=== PATIENT | female | born 1940 | race Caucasian/White ===

== ENCOUNTER → 2017-01-18 | Outpatient (CLI) | payer MEDICARE ==
[2017-01-18 08:36] LABS: Basophils % (A) 1 %; CH 28.4; CHCM 32.4; Eosinophils # (A) 0.2 k/uL (0-0.7); Eosinophils % (A) 3 %; HCT 38.6 % (34.0-46.0); HDW 2.45; HGB 12.3 gm/dL (11.4-16.0); Luc # (Auto) 0.19; Luc % (Auto) 3; Lymphocytes # (A) 1.8 k/uL (1.0-4.8); Lymphocytes % (A) 31 %; MCH 28.2 pg (25.0-35.0); MCV 88.1 fL (80.0-100.0); Mean Platelet Volume 6.5; Monocytes # (A) 0.5 k/uL (0-1.0); Monocytes % (A) 8 %; Neutrophils # (A) 3.2 k/uL (1.3-7.7); Neutrophils % (A) 54 %; RBC 4.38 m/uL (3.80-5.40); RDW 12.6 % (11.5-15.5); WBC 5.9 k/uL (3.8-10.6); WBC (Perox) 6.36
[2017-01-18 09:16] LABS: Hemoglobin A1C 6.7 % (4.2-6.1)
[2017-01-18 11:05] LABS: ALT 38 U/L (9-52); AST 27 U/L (14-36); Alkaline Phosphatase 74 U/L (38-126); Anion Gap 11 mmol/L; Blood Urea Nitrogen 29 mg/dL (7-17); Calcium 10.9 mg/dL (8.4-10.2); Carbon Dioxide 26 mmol/L (22-30); Chloride 106 mmol/L (98-107); Cholesterol 152 mg/dL (<200); Glucose 138 mg/dL (74-99); HDL Cholesterol 65 mg/dL (40-60); Non-African American GFR(MDRD) >60 (>60 ml/min/1.73 sqM); Potassium 4.1 mmol/L (3.5-5.1); Sodium 143 mmol/L (137-145); Total Bilirubin 0.6 mg/dL (0.2-1.3); Total Protein 7.4 g/dL (6.3-8.2); Triglycerides 125 mg/dL (<150)
== END | disposition home or self-care (01) ==
LOC: LABWHC1 08:07
PROVIDERS: ATTEND Family Medicine
DX: E11.9 Type 2 diabetes mellitus without complications (principal); E55.9 Vitamin D deficiency, unspecified; E03.9 Hypothyroidism, unspecified; E78.5 Hyperlipidemia, unspecified
CPT/HCPCS: 36415; 80053; 80061; 82306; 83036; 84439; 84443; 84481; 85025

== ENCOUNTER → 2017-01-28 | Outpatient (CLI) | payer MEDICARE ==
--- NOTE | 2017-01-28 13:28 | US ---
EXAMINATION TYPE: US thyroid st tissue head/neck DATE OF EXAM: 01/28/2017 12:36 PM COMPARISON: No previous CLINICAL HISTORY: Hypercalcemia E83.52 Hyperthyroidism E05.90. dizziness GLAND SIZE: Right Lobe: 5.6 x 1.7 x 1.5 cm Overall Parenchyma: heterogenous Left Lobe: 4.1 x 1.3 x 1.4 cm Overall Parenchyma: heterogeneous Isthmus Thickness: 0.3 cm NODULES RIGHT: # of nodules measured on right: 1 1. 0.4 X 0.3 x 0.3 cm hypoechoic cystic nodule at the upper pole with well-defined margins. This no dule is wider than tall and shows no intranodular vascularity. Prior size: no previous LEFT: # of nodules measured on left: 0 ISTHMUS: # of nodules measured in the isthmus: 0 TECHNOLOGIST IMPRESSION: heterogeneous thyroid with slightly enlarged right lobe with multiple small cystic nodules, bilateral neck scanned, no abnormal lymphadenopathy noted. IMPRESSION: 1. RIGHT-SIDED THYROMEGALY. 2. MULTIPLE, TINY, RIGHT-SIDED HYPOECHOIC/CYSTIC LESIONS.
--- NOTE | 2017-01-28 13:30 | US ---
EXAMINATION TYPE: US carotid duplex BILAT DATE OF EXAM: 01/28/2017 12:46 PM COMPARISON: no previous CLINICAL HISTORY: Hypercalcemia E83.52 Hyperthyroidism E05.90. Dizziness EXAM MEASUREMENTS: RIGHT: Peak Systolic Velocity (PSV) cm/sec ----- Right CCA: 101.1 ----- Right ICA: 116.4 ----- Right ECA: 133.7 ICA/CCA ratio: 1.2 RIGHT: End Diastole cm/sec ----- Right CCA: 31.4 ----- Right ICA: 42.7 ----- Right ECA: 22.5 LEFT: Peak Systolic Velocity (PSV) cm/sec ----- Left CCA: 94.7 ----- Left ICA: 141.8 ----- Left ECA: 90.4 ICA/CCA ratio: 1.5 LEFT: End Diastole cm/sec ----- Left CCA: 23.6 ----- Left ICA: 53.4 ----- Left ECA: 13.9 VERTEBRALS (direction of flow): Right Vertebral: Antegrade Left Vertebral: Antegrade TECHNOLOGIST IMPRESSION: Bilateral intimal thickening, minimal plaque bilateral bulb, elevated veloc ities: right mid ECA and left proximal ICA. IMPRESSION: 1. 50-69% BY DIAMETER STENOSIS OF THE PROXIMAL LEFT ICA. 2. ELEVATED ECA FLOW ON THE RIGHT. Criteria for Assigning % of Stenosis / Diameter reduction (Estimation based on the indirect measurements of the internal carotid artery velocities (ICA PSV). 1. Normal (no stenosis)=ICA PSV < 125 cm/s: ratio < 2.0: ICA EDV<40 cm/s. 2. Less than 50% stenosis=ICA PSV < 125 cm/s: ratio < 2.0: ICA EDV<40 cm/s. 3. 50 to 69% stenosis=ICA PSV of 125 to 230 cm/s: ration 2.0 ? 4.0: ICA EDV 40-100 cm/s. 4. Greater than 70% stenosis to near occlusion= ICA PSV > 230 cm/s: ratio > 4.0: ICA EDV > 100 cm/s. 5. Near occlusion= ICA PSV velocities may be low or undetectable: variable ratio and ICA EDV. 6. Total occlusion=unable to detect flow.
== END | disposition home or self-care (01) ==
LOC: RADUSWWP 12:11
PROVIDERS: ATTEND Family Medicine
DX: I65.22 Occlusion and stenosis of left carotid artery (principal); E04.2 Nontoxic multinodular goiter; E05.90 Thyrotoxicosis, unspecified without thyrotoxic crisis or storm
CPT/HCPCS: 76536; 80053; 82330; 83970; 84432; 85025; 93880

== ENCOUNTER → 2017-02-26 | Outpatient (CLI) | payer MEDICARE ==
--- NOTE | 2017-02-26 21:39 | MR ---
MRA neck with and without contrast HISTORY: Dizziness, carotid stenosis Correlation to carotid Doppler duplex 28 January 2017 [id number] imaging obtained through the neck, multiplanar multisequence and postcontrast imaging following 20 cc MultiHance IV through the neck, three-dimensional post processing performed on the [place] [employer] workstation Common carotid arteries, innominate artery, left and right subclavian artery, vertebral arteries are patent. No significant stenosis of the proximal internal carotid arteries bilaterally. Left vertebral artery is dominant. Internal and external carotid arteries are patent. IMPRESSION: Normal carotid MRA
== END | disposition home or self-care (01) ==
LOC: RADMRIMAIN 10:55
PROVIDERS: ATTEND Family Medicine
DX: I65.29 Occlusion and stenosis of unspecified carotid artery (principal)
CPT/HCPCS: 70549; A9577

== ENCOUNTER → 2017-03-10 | Outpatient (CLI) | payer MEDICARE ==
--- NOTE | 2017-03-10 16:30 | NM ---
EXAMINATION TYPE: NM parathyroid w/spect DATE OF EXAM: 03/10/2017 3:27 PM COMPARISON: NONE HISTORY: TECHNIQUE: Following administration of 27.1 mCi Tc99m Sestamibi. Anterior projection images of the neck and ches t were obtained 10 minutes and 3 hours post injection. SPECT images of the neck and chest were obtai nikita and reconstructed in three axes. FINDINGS: Thyroid tracer washout: Delayed images demonstrate near-complete tracer washout from the thyroid. Parathyroid uptake: Delayed images demonstrate a focal area of increased uptake overlying the expecte d region of the thyroid bed which may represent a parathyroid adenoma. Normal uptake: There is physio logical tracer uptake in the myocardium, liver, salivary glands, and thyroid gland. IMPRESSION: Findings are suspicious for a parathyroid adenoma overlying the left thyroid bed.
== END | disposition home or self-care (01) ==
LOC: RADBDWWP 10:26
PROVIDERS: ATTEND Internal Medicine Endocrinology, Diabetes & Metabolism
DX: E21.0 Primary hyperparathyroidism (principal)
CPT/HCPCS: 78071; A9500

== ENCOUNTER → 2017-03-17 | Outpatient (CLI) | payer MEDICARE ==
[2017-03-17 08:14] LABS: ALT 26 U/L (9-52); AST 23 U/L (14-36); Alkaline Phosphatase 71 U/L (38-126); Anion Gap 8 mmol/L; Blood Urea Nitrogen 27 mg/dL (7-17); Calcium 10.8 mg/dL (8.4-10.2); Carbon Dioxide 28 mmol/L (22-30); Chloride 105 mmol/L (98-107); Glucose 140 mg/dL (74-99); Non-African American GFR(MDRD) >60 (>60 ml/min/1.73 sqM); Potassium 4.4 mmol/L (3.5-5.1); Sodium 141 mmol/L (137-145); Total Bilirubin 0.6 mg/dL (0.2-1.3); Total Protein 7.7 g/dL (6.3-8.2)
== END | disposition home or self-care (01) ==
LOC: LABWHC1 07:07
PROVIDERS: ATTEND Internal Medicine Endocrinology, Diabetes & Metabolism
DX: E21.0 Primary hyperparathyroidism (principal)
CPT/HCPCS: 36415; 80053; 82306; 83970; 84439; 84443

== ENCOUNTER → 2017-04-04 | Outpatient (CLI) | payer MEDICARE ==
--- NOTE | 2017-04-05 11:17 | NM ---
EXAMINATION TYPE: NM thyroid image w uptake DATE OF EXAM: 04/05/2017 11:08 AM COMPARISON: 01/28/2017 HISTORY: Hyperthyroidism TECHNIQUE: After the intravenous administration of 11.0 mCi Tc 99m Sodium Pertechnetate, thyroid imag ing is performed 10 minutes post injection. Thyroid iodine uptake is calculated after the oral admini stration of 20.0 uCi I-131 capsule. FINDINGS: There is a area of increased intensity within the mid aspect of the right lobe thyroid.. T he 4 hour iodine uptake is calculated at 21.6% (normal range 8-14%). The 24-hour iodine uptake is aurora culated at 69% (normal range 15-35%). IMPRESSION: 1. Hyperthyroidism due to increased intensity uptake mid right thyroid. Could represent a hot nodule. Although, ultrasound 01/28/2017 demonstrated no definite corresponding nodule.
== END | disposition home or self-care (01) ==
LOC: RADNMMAIN 10:32
PROVIDERS: ATTEND Internal Medicine Endocrinology, Diabetes & Metabolism
DX: E05.90 Thyrotoxicosis, unspecified without thyrotoxic crisis or storm (principal)
CPT/HCPCS: 78014; A9528; A9512

== ENCOUNTER → 2017-05-05 | Outpatient (CLI) | payer MEDICARE ==
[2017-05-05 11:31] LABS: ALT 42 U/L (9-52); AST 26 U/L (14-36); Alkaline Phosphatase 91 U/L (38-126); Anion Gap 11 mmol/L; Blood Urea Nitrogen 24 mg/dL (7-17); Calcium 10.7 mg/dL (8.4-10.2); Carbon Dioxide 27 mmol/L (22-30); Chloride 105 mmol/L (98-107); Glucose 125 mg/dL (74-99); Non-African American GFR(MDRD) >60 (>60 ml/min/1.73 sqM); Sodium 143 mmol/L (137-145); Total Bilirubin 0.6 mg/dL (0.2-1.3); Total Protein 7.5 g/dL (6.3-8.2)
== END ==
LOC: LABWHC1 10:54
PROVIDERS: ATTEND Internal Medicine Endocrinology, Diabetes & Metabolism
DX: E05.90 Thyrotoxicosis, unspecified without thyrotoxic crisis or storm (principal); E21.0 Primary hyperparathyroidism
CPT/HCPCS: 36415; 80053; 83970; 84439; 84443; 84480

== ENCOUNTER → 2017-06-09 | Outpatient (CLI) | payer MEDICARE ==
[2017-06-09 11:28] LABS: ALT 36 U/L (9-52); AST 23 U/L (14-36); Alkaline Phosphatase 91 U/L (38-126); Anion Gap 8 mmol/L; Blood Urea Nitrogen 27 mg/dL (7-17); Calcium 9.8 mg/dL (8.4-10.2); Carbon Dioxide 26 mmol/L (22-30); Chloride 105 mmol/L (98-107); Glucose 112 mg/dL (74-99); Non-African American GFR(MDRD) >60 (>60 ml/min/1.73 sqM); Potassium 4.6 mmol/L (3.5-5.1); Sodium 139 mmol/L (137-145); Total Bilirubin 0.4 mg/dL (0.2-1.3); Total Protein 6.9 g/dL (6.3-8.2)
== END | disposition home or self-care (01) ==
LOC: LABWHC1 10:18
PROVIDERS: ATTEND Internal Medicine Endocrinology, Diabetes & Metabolism
DX: E21.0 Primary hyperparathyroidism (principal); E04.1 Nontoxic single thyroid nodule
CPT/HCPCS: 36415; 80053; 82306; 83970; 84439; 84443; 84480

== ENCOUNTER → 2017-08-17 | Outpatient (CLI) | payer MEDICARE ==
[2017-08-17 08:52] LABS: ALT 38 U/L (9-52); AST 28 U/L (14-36); Alkaline Phosphatase 97 U/L (38-126); Anion Gap 8 mmol/L; Blood Urea Nitrogen 21 mg/dL (7-17); Calcium 9.8 mg/dL (8.4-10.2); Carbon Dioxide 28 mmol/L (22-30); Chloride 104 mmol/L (98-107); Glucose 113 mg/dL (74-99); Non-African American GFR(MDRD) 53 (>60 ml/min/1.73 sqM); Potassium 4.9 mmol/L (3.5-5.1); Sodium 140 mmol/L (137-145); Total Bilirubin 0.3 mg/dL (0.2-1.3); Total Protein 7.3 g/dL (6.3-8.2)
== END | disposition home or self-care (01) ==
LOC: LABWHC1 07:34
PROVIDERS: ATTEND Internal Medicine Endocrinology, Diabetes & Metabolism
DX: E04.1 Nontoxic single thyroid nodule (principal); E21.0 Primary hyperparathyroidism
CPT/HCPCS: 36415; 80053; 83970; 84439; 84443; 84480

== ENCOUNTER → 2017-12-22 | Outpatient (CLI) | payer MEDICARE ==
[2017-12-22 09:42] LABS: Albumin 4.1 g/dL (3.5-5.0); Calcium 10.2 mg/dL (8.4-10.2); Potassium 4.4 mmol/L (3.5-5.1); Total Bilirubin 0.4 mg/dL (0.2-1.3); Total Protein 7.4 g/dL (6.3-8.2)
[2017-12-22 09:52] LABS: T4, Free (Free Thyroxine) 0.63 ng/dL (0.78-2.19)
== END | disposition home or self-care (01) ==
LOC: LABWHC1 08:28
PROVIDERS: ATTEND Internal Medicine Endocrinology, Diabetes & Metabolism
DX: E83.52 Hypercalcemia (principal); E05.90 Thyrotoxicosis, unspecified without thyrotoxic crisis or storm
CPT/HCPCS: 36415; 80053; 82306; 83970; 84439; 84443

== ENCOUNTER → 2018-01-12 | Outpatient (CLI) | payer MEDICARE ==
--- NOTE | 2018-01-12 10:09 | US ---
EXAMINATION TYPE: US duplex aorta DATE OF EXAM: 01/12/2018 COMPARISON: NONE CLINICAL HISTORY: Z13.9 Screening for Disorder; family history of AAA; controlled HTN per patient EXAM MEASUREMENTS: Abdominal Aorta: Proximal: 2.1cm A/P by 1.8 cm transversely Mid: 1.8cm A/P by 1.7 cm transversely Distal: 2.5cm A/P Sagittal by 1.8 cm transversely Bifurcation: 1.2cm A/P right FER and 1.1cm A/P left FER Ectatic appearance is noted to lower aorta with intimal wall calcifications, Color flow patency and PW Doppler are imaged in distal aorta. IMPRESSION: Atherosclerotic and ectatic aorta especially distally without greater than 3 cm aneurysma l change identified.
== END | disposition home or self-care (01) ==
LOC: RADUSWWP 08:40
PROVIDERS: ATTEND Family Medicine
DX: I70.0 Atherosclerosis of aorta (principal); I77.819 Aortic ectasia, unspecified site; Z88.8 Allergy status to other drugs, medicaments and biological substances; Z91.040 Latex allergy status
CPT/HCPCS: 93979

== ENCOUNTER → 2018-03-30 | Outpatient (CLI) | payer MEDICARE ==
[2018-03-30 08:25] LABS: Albumin 3.8 g/dL (3.5-5.0); Calcium 10.3 mg/dL (8.4-10.2); Potassium 4.9 mmol/L (3.5-5.1); Total Bilirubin 0.5 mg/dL (0.2-1.3); Total Protein 6.9 g/dL (6.3-8.2)
[2018-03-30 08:40] LABS: T4, Free (Free Thyroxine) 1.07 ng/dL (0.78-2.19)
[2018-03-30 11:35] LABS: Parathyroid Hormone Intact 74.6 pg/mL (14.0-72.0); Vitamin D 25 Hydroxy 45.5 ng/mL (30.0-100.0)
== END | disposition home or self-care (01) ==
LOC: LABWHC1 07:13
PROVIDERS: ATTEND Internal Medicine Endocrinology, Diabetes & Metabolism
DX: E05.90 Thyrotoxicosis, unspecified without thyrotoxic crisis or storm (principal); E83.52 Hypercalcemia
CPT/HCPCS: 36415; 80053; 82306; 83970; 84439; 84443; 84480

== ENCOUNTER → 2018-07-05 | Outpatient (CLI) | payer MEDICARE ==
[2018-07-05 09:19] LABS: ALT 28 U/L (9-52); AST 22 U/L (14-36); Albumin 3.8 g/dL (3.5-5.0); Alkaline Phosphatase 57 U/L (38-126); Anion Gap 6 mmol/L; Calcium 10.2 mg/dL (8.4-10.2); Carbon Dioxide 28 mmol/L (22-30); Chloride 107 mmol/L (98-107); Glucose 124 mg/dL (74-99); Potassium 4.3 mmol/L (3.5-5.1); Sodium 141 mmol/L (137-145); Total Bilirubin 0.5 mg/dL (0.2-1.3)
[2018-07-05 09:33] LABS: Blood Urea Nitrogen 28 mg/dL (7-17)
== END | disposition home or self-care (01) ==
LOC: LABWHC1 07:35
PROVIDERS: ATTEND Internal Medicine Endocrinology, Diabetes & Metabolism
DX: E05.90 Thyrotoxicosis, unspecified without thyrotoxic crisis or storm (principal); E83.52 Hypercalcemia
CPT/HCPCS: 36415; 80053; 84439; 84443; 84480

== ENCOUNTER → 2018-11-13 | Outpatient (CLI) | payer MEDICARE | LOC: LABWHC1 10:04 | PROVIDERS: ATTEND Internal Medicine Endocrinology, Diabetes & Metabolism | DX: E05.20 Thyrotoxicosis with toxic multinodular goiter without thyrotoxic crisis or storm (principal) | CPT/HCPCS: 36415; 84439; 84443 ==

== ENCOUNTER → 2019-02-19 | Outpatient (CLI) | payer MEDICARE ==
--- NOTE | 2019-02-19 14:10 | BD ---
EXAMINATION TYPE: Axial Bone Density DATE OF EXAM: 02/19/2019 COMPARISON:2016 CLINICAL HISTORY: disorder of bone Height: 5'5 / Weight: 169 FRAX RISK QUESTIONS: History of Fracture in Adulthood: y Secondary Osteoporosis: RISK FACTORS HISTORY OF: Postmenopausal woman: y MEDICATIONS: Thyroid Medications: Which medication: tapazol How Lon years Additional Medications: pain, statin Zestoretic Additional History: EXAM MEASUREMENTS: Bone mineral densitometry was performed using the [facility]. Bone mineral density as measured about the Lumbar spine is: ----- L1-L4(G/cm2): 1.193 T Score Values are as follows: ----- L2: -0.3 ----- L3:1.3 ----- L4: 0.8 ----- L1-L4: 0.1 Bone mineral density has: Decreased -0.5since study of: 08/16/2016 Bone mineral density about the R hip (g/cm2): 0.871 Bone mineral density about the L hip (g/cm2): 0.851 T Score values are as follows: -----R Neck: -1.2 -----L Neck: -1.3 -----R Total: -0.8 -----L Total: -0.9 Bone mineral density has: Decreased -2.8since study of: 08/16/2016 IMPRESSION: Osteopenia (T Score between -2.5 and -1). There is slightly increased risk of fracture and the patient may be considered for treatment. Re-Screen 2-5 years. NOTE: T-SCORE=SD OF THE YOUNG ADULT MEAN.
--- NOTE | 2019-02-20 09:08 | MM ---
Reason for exam: screening (asymptomatic). Last mammogram was performed 1 year and 2 months ago. History: Patient is postmenopausal. Physical Findings: A clinical breast exam by your physician is recommended on an annual basis and results should be correlated with mammographic findings. MG Screening Mammo w CAD Bilateral CC and MLO view(s) were taken. Prior study comparison: December 15, 2017, bilateral MG screening mammo w CAD. August 16, 2016, bilateral MG screening mammo w CAD. The breast tissue is heterogeneously dense. This may lower the sensitivity of mammography. There is chronic nodularity bilaterally. There is no dominant lesion. No significant changes when compared with prior studies. ASSESSMENT: Benign, BI-RAD 2 RECOMMENDATION: Routine screening mammogram of both breasts in 1 year.
== END | disposition home or self-care (01) ==
LOC: RADMAMWWP 13:25
PROVIDERS: ATTEND Family Medicine
DX: Z12.31 Encounter for screening mammogram for malignant neoplasm of breast (principal); M85.851 Other specified disorders of bone density and structure, right thigh; M85.852 Other specified disorders of bone density and structure, left thigh; Z78.0 Asymptomatic menopausal state
CPT/HCPCS: 77067; 77080

== ENCOUNTER → 2019-03-29 | Outpatient (CLI) | payer MEDICARE ==
[2019-03-29 23:23] LABS: Albumin 4.1 g/dL (3.80-4.90); Albumin/Globulin Ratio 1.71 (1.60-3.17); Anion Gap 7.5 mmol/L (4.00-12.00); Calcium 9.8 mg/dL (8.7-10.3); Carbon Dioxide 26.5 mmol/L (21.6-31.8); Globulin 2.4 g/dL (1.6-3.3); Potassium 4.2 mmol/L (3.5-5.5); Total Bilirubin 0.3 mg/dL (0.3-1.2); Total Protein 6.5 g/dL (6.2-8.2)
[2019-03-29 23:30] LABS: T4, Free (Free Thyroxine) 1.5 ng/dL (0.80-1.80)
== END | disposition home or self-care (01) ==
LOC: LABWHC1 14:45
PROVIDERS: ATTEND Internal Medicine Endocrinology, Diabetes & Metabolism
DX: E05.20 Thyrotoxicosis with toxic multinodular goiter without thyrotoxic crisis or storm (principal)
CPT/HCPCS: 36415; 80053; 84439; 84443; 84480

== ENCOUNTER → 2019-06-05 | Outpatient (CLI) | payer MEDICARE ==
[2019-06-05 19:01] LABS: African American GFR (CKD) 61.6 (60.0-200.0); Albumin 4.1 g/dL (3.80-4.90); Albumin/Globulin Ratio 1.58 (1.60-3.17); Anion Gap 7.1 mmol/L (4.00-12.00); Calcium 8.9 mg/dL (8.7-10.3); Carbon Dioxide 28.9 mmol/L (21.6-31.8); Globulin 2.6 g/dL (1.6-3.3); Potassium 4.3 mmol/L (3.5-5.5); Total Bilirubin 0.2 mg/dL (0.3-1.2); Total Protein 6.7 g/dL (6.2-8.2)
[2019-06-05 19:08] LABS: T4, Free (Free Thyroxine) 1.4 ng/dL (0.80-1.80)
== END | disposition home or self-care (01) ==
LOC: LABWHC1 15:09
PROVIDERS: ATTEND Internal Medicine Endocrinology, Diabetes & Metabolism
DX: E05.20 Thyrotoxicosis with toxic multinodular goiter without thyrotoxic crisis or storm (principal); E04.1 Nontoxic single thyroid nodule
CPT/HCPCS: 36415; 80053; 84439; 84443; 84480

== ENCOUNTER → 2019-08-28 | Outpatient (CLI) | payer MEDICARE ==
[2019-08-28 08:09] LABS: Basophils # (A) 0.1 k/uL (0-0.2); Basophils % (A) 1 %; Eosinophils # (A) 0.2 k/uL (0-0.7); Eosinophils % (A) 3 %; HCT 40.9 % (34.0-46.0); Lymphocytes # (A) 1.8 k/uL (1.0-4.8); Lymphocytes % (A) 27 %; MCH 29.4 pg (25.0-35.0); MCHC 31.9 g/dL (31.0-37.0); MCV 92.4 fL (80.0-100.0); Mean Platelet Volume 6.4; Monocytes # (A) 0.5 k/uL (0-1.0); Monocytes % (A) 8 %; Neutrophils # (A) 3.9 k/uL (1.3-7.7); Neutrophils % (A) 59 %; Platelet Count 218 k/uL (150-450); RBC 4.43 m/uL (3.80-5.40); RDW 12.3 % (11.5-15.5); WBC 6.7 k/uL (3.8-10.6)
[2019-08-28 12:01] LABS: African American GFR (CKD) 54.5 (60.0-200.0); Albumin 4.3 g/dL (3.80-4.90); Albumin/Globulin Ratio 1.72 (1.60-3.17); Anion Gap 6.4 mmol/L (4.00-12.00); BUN/Creat Ratio 27.27 Ratio (12.00-20.00); Calcium 10.4 mg/dL (8.7-10.3); Carbon Dioxide 26.6 mmol/L (21.6-31.8); Chol/HDL Ratio 2.68; Globulin 2.5 g/dL (1.6-3.3); LDL Cholesterol,Calculated 86.4 mg/dL (0.0-131.0); Potassium 4.6 mmol/L (3.5-5.5); Total Bilirubin 0.5 mg/dL (0.3-1.2); Total Protein 6.8 g/dL (6.2-8.2); VLDL Calculation 19.6 mg/dL (5.00-40.00)
[2019-08-28 14:51] LABS: Hemoglobin A1C 7.2 % (4.0-6.0)
== END | disposition home or self-care (01) ==
LOC: LABWHC1 07:48
PROVIDERS: ATTEND Physician Assistant
DX: E11.9 Type 2 diabetes mellitus without complications (principal)
CPT/HCPCS: 36415; 80053; 80061; 83036; 85025

== ENCOUNTER → 2019-12-05 | Outpatient (CLI) | payer MEDICARE | END | disposition home or self-care (01) | LOC: LABWHC1 10:04 | PROVIDERS: ATTEND Internal Medicine Endocrinology, Diabetes & Metabolism | DX: E05.20 Thyrotoxicosis with toxic multinodular goiter without thyrotoxic crisis or storm (principal) | CPT/HCPCS: 36415; 84439; 84443; 84480 ==

== ENCOUNTER → 2020-06-17 | Outpatient (CLI) | payer MEDICARE ==
[2020-06-17 11:41] LABS: T4, Free (Free Thyroxine) 0.76 ng/dL (0.78-2.19)
== END | disposition home or self-care (01) ==
LOC: LAB 09:58
PROVIDERS: ATTEND Internal Medicine Endocrinology, Diabetes & Metabolism
DX: E04.1 Nontoxic single thyroid nodule (principal)
CPT/HCPCS: 84439; 84443; 84480

== ENCOUNTER → 2020-06-17 | Outpatient (CLI) | payer MEDICARE ==
--- NOTE | 2020-06-23 11:01 | MM ---
Reason for exam: screening (asymptomatic). Last mammogram was performed 1 year and 4 months ago. History: Patient is postmenopausal. Physical Findings: A clinical breast exam by your physician is recommended on an annual basis and results should be correlated with mammographic findings. MG 3D Screening Mammo W/Cad Bilateral CC and MLO view(s) were taken. Prior study comparison: February 19, 2019, bilateral MG screening mammo w CAD. December 15, 2017, bilateral MG screening mammo w CAD. The breast tissue is heterogeneously dense. This may lower the sensitivity of mammography. No significant changes when compared with prior studies. ASSESSMENT: Benign, BI-RAD 2 RECOMMENDATION: Routine screening mammogram of both breasts in 1 year.
== END | disposition home or self-care (01) ==
LOC: RADMAMWWP 09:32
PROVIDERS: ATTEND Family Medicine
DX: Z12.31 Encounter for screening mammogram for malignant neoplasm of breast (principal)
CPT/HCPCS: 77063; 77067

== ENCOUNTER → 2020-12-24 | Outpatient (CLI) | payer MEDICARE ==
[2020-12-24 11:07] LABS: Basophils # (A) 0.05 X 10*3/uL (0.00-0.10); Basophils % (A) 0.7 %; Eosinophils # (A) 0.22 X 10*3/uL (0.04-0.35); Eosinophils % (A) 3.1 %; HGB 12.8 g/dL (12.0-15.0); Lymphocytes # (A) 2.12 X 10*3/uL (0.90-5.00); Lymphocytes % (A) 29.9 %; MCH 29.9 pg (27.0-32.0); MCV 93.5 fL (80.0-97.0); Mean Platelet Volume 10.1 fL (9.5-12.2); Monocytes # (A) 0.58 X 10*3/uL (0.20-1.00); Monocytes % (A) 8.2 %; Neutrophils % (A) 57.8 %; Platelet Count 236 X 10*3/uL (140-440); RBC 4.28 X 10*6/uL (4.10-5.20); WBC 7.09 X 10*3/uL (4.50-10.00)
[2020-12-24 12:37] LABS: African American GFR (CKD) 60.8 (60.0-200.0); Albumin 4.5 g/dL (3.80-4.90); Albumin/Globulin Ratio 1.8 (1.60-3.17); Calcium 10.1 mg/dL (8.7-10.3); Chol/HDL Ratio 2.51; Globulin 2.5 g/dL (1.6-3.3); LDL Cholesterol,Calculated 86.2 mg/dL (0.0-131.0); Non-African American GFR(CKD) 52.4 (60.0-200.0); Potassium 4.3 mmol/L (3.5-5.5); Total Bilirubin 0.4 mg/dL (0.2-1.2); VLDL Calculation 16.8 mg/dL (5.00-40.00)
[2020-12-24 12:45] LABS: T4, Free (Free Thyroxine) 0.9 ng/dL (0.80-1.80)
[2020-12-24 17:07] LABS: Hemoglobin A1C 7.8 % (4.0-6.0)
== END | disposition home or self-care (01) ==
LOC: LABWHC1 07:12
PROVIDERS: ATTEND Internal Medicine Endocrinology, Diabetes & Metabolism
DX: E05.00 Thyrotoxicosis with diffuse goiter without thyrotoxic crisis or storm (principal); E11.42 Type 2 diabetes mellitus with diabetic polyneuropathy; E78.5 Hyperlipidemia, unspecified; E55.9 Vitamin D deficiency, unspecified; E03.9 Hypothyroidism, unspecified
CPT/HCPCS: 36415; 80053; 80061; 82306; 83036; 84439; 84443; 84479; 84481; 85025

== ENCOUNTER → 2021-08-20 | Outpatient (CLI) | payer MEDICARE ==
[2021-08-21 05:39] LABS: ALT 15 U/L (8-44); AST 15 U/L (13-35); African American GFR (CKD) 60.8 (60.0-200.0); Albumin 4.1 g/dL (3.8-4.9); Albumin/Globulin Ratio 1.52 (1.60-3.17); Alkaline Phosphatase 52 U/L (41-126); BUN/Creat Ratio 21.33 Ratio (12.00-20.00); Blood Urea Nitrogen 21.2 mg/dL (9.0-27.0); Calcium 10.1 mg/dL (8.7-10.3); Carbon Dioxide 23.3 mmol/L (21.6-31.8); Chloride 101 mmol/L (96-109); Globulin 2.7 g/dL (1.6-3.3); Glucose 117 mg/dL (70-110); Non-African American GFR(CKD) 52.4 (60.0-200.0); Potassium 4.2 mmol/L (3.5-5.5); Sodium 138 mmol/L (135-145); Total Bilirubin <0.20 mg/dL (0.30-1.20); Total Protein 6.8 g/dL (6.2-8.2)
== END | disposition home or self-care (01) ==
LOC: LABWHC1 15:18
PROVIDERS: ATTEND Internal Medicine Endocrinology, Diabetes & Metabolism
DX: E05.20 Thyrotoxicosis with toxic multinodular goiter without thyrotoxic crisis or storm (principal)
CPT/HCPCS: 36415; 80053; 84439; 84443; 84480

== ENCOUNTER → 2021-09-01 | Outpatient (CLI) | payer MEDICARE ==
--- NOTE | 2021-09-01 17:17 | BD ---
EXAMINATION TYPE: Axial Bone Density DATE OF EXAM: 09/01/2021 COMPARISON: 02/19/2019 CLINICAL HISTORY: Postmenopausal screening Height: 5 FT 6 IN Weight: 168 FRAX RISK QUESTIONS: Alcohol (3 or more units per day): NO Family History (Parent hip fracture): YES Glucocorticoids (More than 3mos): NO (Ex: prednisone, prednisolone, methylprednisolone, dexamethasone, and hydrocortisone). History of Fracture in Adulthood: YES Secondary Osteoporosis: 1. Type 1 Diabetes: TYPE 2 2. Hyperthyroidism: GOITER 3. Menopause before 45: NO 4. Malnutrition: NO 5. Chronic liver disease: NO Rheumatoid Arthritis: NO Current Tobacco Use: NO RISK FACTORS HISTORY OF: Surgery to Spine/Hip(right/left)/Wrist (right/left): NO Family History of Osteoporosis: YES Active: YES Diet low in dairy products/other sources of calcium: NO Postmenopausal woman: AGE 52 Take estrogen and/or progesterone medications: NO Lost more than 2 inches in height since high school: YES MEDICATIONS: Thyroid Medications: YES Which medication: TAPAZOL How Lon YEARS Additional Medications: TAPAZOL ,CHOLESTEROL MEDS, ZESTORETIC, MOBIC , Additional History: CARPAL TUNNEL RT 2016 EXAM MEASUREMENTS: Bone mineral densitometry was performed using the [employer] [facility]. Bone mineral density as measured about the Lumbar spine is: ----- L1-L4(G/c2): 1.247 T Score Values are as follows: ----- L2: -0.2 ----- L3: 1.8 ----- L4: 1.3 ----- L1-L4: 0.6 Bone mineral density has: INCREASED 3.7 % since study of: 2018 Bone mineral density about the R hip (g/cm2): 0.862 Bone mineral density about the L hip (g/cm2): 0.856 T Score values are as follows: -----R Neck: -1.3 -----L Neck: -1.3 -----R Total: -0.9 -----L Total: -0.7 Bone mineral density has: INCREASED 0.6 % since study of: 2018 IMPRESSION: Osteopenia (T Score between -2.5 and -1). There is slightly increased risk of fracture and the patient may be considered for treatment. Re-Screen 2-5 years. NOTE: T-SCORE=SD OF THE YOUNG ADULT MEAN.
--- NOTE | 2021-09-02 08:57 | MM ---
Reason for exam: screening (asymptomatic). Last mammogram was performed 1 year and 2 months ago. History: Patient is postmenopausal. Physical Findings: A clinical breast exam by your physician is recommended on an annual basis and results should be correlated with mammographic findings. MG 3D Screening Mammo W/Cad Bilateral CC and MLO view(s) were taken. Prior study comparison: June 17, 2020, bilateral MG 3d screening mammo w/cad. February 19, 2019, bilateral MG screening mammo w CAD. The breast tissue is heterogeneously dense. This may lower the sensitivity of mammography. Stable benign calcifications. There is no discrete abnormality. No significant changes when compared with prior studies. ASSESSMENT: Benign, BI-RAD 2 RECOMMENDATION: Routine screening mammogram of both breasts in 1 year.
== END | disposition home or self-care (01) ==
LOC: RADMAMWWP 11:38
PROVIDERS: ATTEND Family Medicine
DX: Z12.31 Encounter for screening mammogram for malignant neoplasm of breast (principal); M85.80 Other specified disorders of bone density and structure, unspecified site; Z78.0 Asymptomatic menopausal state
CPT/HCPCS: 77063; 77067; 77080

== ENCOUNTER → 2021-12-08 | Outpatient (CLI) | payer MEDICARE | END | disposition home or self-care (01) | LOC: LABWHC1 10:47 | PROVIDERS: ATTEND Internal Medicine Endocrinology, Diabetes & Metabolism | DX: E04.1 Nontoxic single thyroid nodule (principal); E05.20 Thyrotoxicosis with toxic multinodular goiter without thyrotoxic crisis or storm | CPT/HCPCS: 36415; 84439; 84443; 84480 ==

== ENCOUNTER → 2022-01-12 | Outpatient (CLI) | payer MEDICARE ==
[2022-01-12 12:04] LABS: Basophils # (A) 0.05 X 10*3/uL (0.00-0.10); Basophils % (A) 0.7 %; Eosinophils % (A) 2.6 %; Immature Grans, Automated 0.4 %; Lymphocytes # (A) 1.73 X 10*3/uL (0.90-5.00); Lymphocytes % (A) 22.8 %; MCH 28.4 pg (27.0-32.0); MCHC 30.8 g/dL (32.0-37.0); MCV 92.4 fL (80.0-97.0); Monocytes # (A) 0.68 X 10*3/uL (0.20-1.00); Monocytes % (A) 8.9 %; NRBC Per 100 WBC 0 /100 WBCS (0.0-0.0); Neutrophils # (A) 4.91 X 10*3/uL (1.80-7.70); Neutrophils % (A) 64.6 %; Platelet Count 278 X 10*3/uL (140-440); RBC 4.22 X 10*6/uL (4.10-5.20); RDW 13.8 % (11.5-14.5)
[2022-01-12 12:12] LABS: ALT 10 U/L (8-44); AST 18 U/L (13-35); African American GFR (CKD) 76.2 (60.0-200.0); Albumin/Globulin Ratio 1.26 (1.60-3.17); Alkaline Phosphatase 68 U/L (41-126); BUN/Creat Ratio 21.72 Ratio (12.00-20.00); Blood Urea Nitrogen 17.9 mg/dL (9.0-27.0); Calcium 10.5 mg/dL (8.7-10.3); Chloride 105 mmol/L (96-109); Globulin 3.2 g/dL (1.6-3.3); Glucose 139 mg/dL (70-110); LDL Cholesterol,Calculated 99.7 mg/dL (0.0-131.0); Non-African American GFR(CKD) 65.8 (60.0-200.0); Potassium 4.5 mmol/L (3.5-5.5); Sodium 140 mmol/L (135-145); Total Protein 7.2 g/dL (6.2-8.2); VLDL Calculation 15.88 mg/dL (5.00-40.00)
== END | disposition home or self-care (01) ==
LOC: LABWHC1 08:18
PROVIDERS: ATTEND Family Medicine
DX: E11.42 Type 2 diabetes mellitus with diabetic polyneuropathy (principal)
CPT/HCPCS: 36415; 80053; 80061; 83036; 85025

== ENCOUNTER → 2022-03-11 | Outpatient (CLI) | payer MEDICARE ==
[2022-03-11 14:45] LABS: African American GFR (CKD) 68.5 (60.0-200.0); Albumin 4.2 g/dL (3.8-4.9); Albumin/Globulin Ratio 1.31 (1.60-3.17); BUN/Creat Ratio 23.22 Ratio (12.00-20.00); Blood Urea Nitrogen 20.9 mg/dL (9.0-27.0); Calcium 10.5 mg/dL (8.7-10.3); Globulin 3.2 g/dL (1.6-3.3); Non-African American GFR(CKD) 59.1 (60.0-200.0); Potassium 4.7 mmol/L (3.5-5.5); T4, Free (Free Thyroxine) 0.89 ng/dL (0.800-1.800); Total Bilirubin 0.2 mg/dL (0.30-1.20); Total Protein 7.4 g/dL (6.2-8.2)
== END | disposition home or self-care (01) ==
LOC: LABWHC1 11:05
PROVIDERS: ATTEND Internal Medicine Endocrinology, Diabetes & Metabolism
DX: E05.20 Thyrotoxicosis with toxic multinodular goiter without thyrotoxic crisis or storm (principal); E04.1 Nontoxic single thyroid nodule
CPT/HCPCS: 36415; 80053; 84439; 84443; 84480

== ENCOUNTER → 2022-07-15 | Outpatient (CLI) | payer MEDICARE ==
[2022-07-15 11:30] LABS: ALT 13 U/L (8-44); AST 17 U/L (13-35); African American GFR (CKD) 60.3 (60.0-200.0); Albumin/Globulin Ratio 1.25 (1.60-3.17); Alkaline Phosphatase 55 U/L (41-126); Blood Urea Nitrogen 20.3 mg/dL (9.0-27.0); Calcium 10.3 mg/dL (8.7-10.3); Carbon Dioxide 27.4 mmol/L (20.0-27.5); Chloride 104 mmol/L (96-109); Chol/HDL Ratio 2.41 Ratio; Globulin 3.2 g/dL (1.6-3.3); Glucose 122 mg/dL (70-110); LDL Cholesterol,Calculated 79.9 mg/dL (0.0-131.0); Non-African American GFR(CKD) 52.1 (60.0-200.0); Sodium 140 mmol/L (135-145); Total Protein 7.2 g/dL (6.2-8.2); VLDL Calculation 14.26 mg/dL (5.00-40.00)
[2022-07-15 11:43] LABS: Basophils # (A) 0.06 X 10*3/uL (0.00-0.10); Basophils % (A) 0.8 %; Eosinophils # (A) 0.18 X 10*3/uL (0.04-0.35); Eosinophils % (A) 2.4 %; HCT 35.1 % (37.2-46.3); HGB 11.3 g/dL (12.0-15.0); Immature Grans, Automated 0.3 %; Lymphocytes # (A) 2.32 X 10*3/uL (0.90-5.00); Lymphocytes % (A) 30.7 %; MCH 29.5 pg (27.0-32.0); MCHC 32.2 g/dL (32.0-37.0); MCV 91.6 fL (80.0-97.0); Mean Platelet Volume 9.6 fL (9.5-12.2); Monocytes # (A) 0.58 X 10*3/uL (0.20-1.00); Monocytes % (A) 7.7 %; NRBC Per 100 WBC 0 /100 WBCS (0.0-0.0); Neutrophils # (A) 4.39 X 10*3/uL (1.80-7.70); Neutrophils % (A) 58.1 %; Platelet Count 263 X 10*3/uL (140-440); RBC 3.83 X 10*6/uL (4.10-5.20); WBC 7.55 X 10*3/uL (4.50-10.00)
== END | disposition home or self-care (01) ==
LOC: LABWHC1 07:26
PROVIDERS: ATTEND Family Medicine
DX: E05.20 Thyrotoxicosis with toxic multinodular goiter without thyrotoxic crisis or storm (principal); E11.42 Type 2 diabetes mellitus with diabetic polyneuropathy
CPT/HCPCS: 36415; 80053; 80061; 83036; 84439; 84443; 84480; 85025

== ENCOUNTER → 2022-10-25 | Outpatient (CLI) | payer MEDICARE ==
[2022-10-25 15:04] LABS: Basophils # (A) 0.04 X 10*3/uL (0.00-0.10); Basophils % (A) 0.6 %; Eosinophils # (A) 0.11 X 10*3/uL (0.04-0.35); Eosinophils % (A) 1.8 %; HCT 37.7 % (37.2-46.3); Immature Grans, Automated 0.2 %; Lymphocytes # (A) 1.57 X 10*3/uL (0.90-5.00); Lymphocytes % (A) 25.2 %; MCH 29.9 pg (27.0-32.0); MCHC 31.8 g/dL (32.0-37.0); MCV 93.8 fL (80.0-97.0); Mean Platelet Volume 10.1 fL (9.5-12.2); Monocytes # (A) 0.52 X 10*3/uL (0.20-1.00); Monocytes % (A) 8.3 %; NRBC Per 100 WBC 0 /100 WBCS (0.0-0.0); Neutrophils # (A) 3.98 X 10*3/uL (1.80-7.70); Neutrophils % (A) 63.9 %; Platelet Count 248 X 10*3/uL (140-440); RBC 4.02 X 10*6/uL (4.10-5.20); RDW 13.1 % (11.5-14.5); Reticulocyte % 1.07 % (0.10-1.80); WBC 6.23 X 10*3/uL (4.50-10.00)
[2022-10-25 15:28] LABS: % Iron Saturation 30.61 (12.00-45.00); African American GFR (CKD) 62.9 (60.0-200.0); Albumin 4.2 g/dL (3.8-4.9); Albumin/Globulin Ratio 1.62 (1.60-3.17); Anion Gap 10.5 mmol/L (10.00-18.00); BUN/Creat Ratio 23.23 Ratio (12.00-20.00); Blood Urea Nitrogen 22.3 mg/dL (9.0-27.0); Calcium 10.5 mg/dL (8.7-10.3); Carbon Dioxide 26.3 mmol/L (20.0-27.5); Globulin 2.6 g/dL (1.6-3.3); Non-African American GFR(CKD) 54.3 (60.0-200.0); Potassium 4.5 mmol/L (3.5-5.5); T4, Free (Free Thyroxine) 0.6 ng/dL (0.800-1.800); Total Bilirubin 0.3 mg/dL (0.30-1.20); Total Protein 6.8 g/dL (6.2-8.2)
== END | disposition home or self-care (01) ==
LOC: LABWHC1 10:06
PROVIDERS: ATTEND Internal Medicine Endocrinology, Diabetes & Metabolism
DX: E05.20 Thyrotoxicosis with toxic multinodular goiter without thyrotoxic crisis or storm (principal); E11.42 Type 2 diabetes mellitus with diabetic polyneuropathy; D64.9 Anemia, unspecified
CPT/HCPCS: 36415; 80053; 82728; 83036; 83540; 83550; 84439; 84443; 84480; 85025; 85045

== ENCOUNTER → 2023-03-17 | Outpatient (CLI) | payer MEDICARE ==
[2023-03-17 15:52] LABS: T4, Free (Free Thyroxine) 0.69 ng/dL (0.800-1.800)
== END | disposition home or self-care (01) ==
LOC: LABWHC1 10:43
PROVIDERS: ATTEND Internal Medicine Endocrinology, Diabetes & Metabolism
DX: E05.90 Thyrotoxicosis, unspecified without thyrotoxic crisis or storm (principal)
CPT/HCPCS: 36415; 84439; 84443; 84480

== ENCOUNTER → 2023-04-28 | Outpatient (CLI) | payer MEDICARE ==
[2023-04-28 11:05] LABS: Basophils # (A) 0.07 X 10*3/uL (0.00-0.10); Basophils % (A) 0.8 %; Eosinophils # (A) 0.27 X 10*3/uL (0.04-0.35); HCT 38.4 % (37.2-46.3); Lymphocytes # (A) 1.91 X 10*3/uL (0.90-5.00); Lymphocytes % (A) 21.2 %; MCH 29.9 pg (27.0-32.0); MCHC 31.3 d/dL (32.0-37.0); MCV 95.5 FL (80.0-97.0); Mean Platelet Volume 9.7 FL (9.5-12.2); Monocytes # (A) 0.86 X 10*3/uL (0.20-1.00); Monocytes % (A) 9.5 %; NRBC Per 100 WBC 0 X 10*3/uL (0.00-0.01); Neutrophils # (A) 5.87 X 10*3/uL (1.80-7.70); Neutrophils % (A) 65.2 %; Platelet Count 250 X 10*3/uL (140-440); RBC 4.02 X 10*6/uL (4.10-5.20); WBC 9.01 X 10*3/uL (4.50-10.00)
[2023-04-28 11:53] LABS: ALT 13 U/L (8-44); AST 15 U/L (13-35); Albumin/Globulin Ratio 1.48 Ratio (1.60-3.17); Alkaline Phosphatase 56 U/L (41-126); BUN/Creat Ratio 25.78 Ratio (12.00-20.00); Blood Urea Nitrogen 23.2 mg/dL (9.0-27.0); Calcium 10.2 mg/dL (8.7-10.3); Carbon Dioxide 26.3 mmol/L (21.6-31.8); Chloride 105 mmol/L (96-109); Chol/HDL Ratio 2.45 Ratio; Globulin 2.7 d/dL (1.6-3.3); Glucose 123 mg/dL (70-110); LDL Cholesterol,Calculated 88.6 mg/dL (0.0-131.0); Potassium 4.4 mmol/L (3.5-5.5); Sodium 142 mmol/L (135-145); Total Bilirubin 0.3 mg/dL (0.3-1.2); Total Protein 6.7 d/dL (6.2-8.2); VLDL Calculation 15.58 mg/dL (5.00-40.00)
== END | disposition home or self-care (01) ==
LOC: LABWHC1 07:33
PROVIDERS: ATTEND Family Medicine
DX: E11.42 Type 2 diabetes mellitus with diabetic polyneuropathy (principal); E55.9 Vitamin D deficiency, unspecified
CPT/HCPCS: 36415; 80053; 80061; 82306; 83036; 85025

== ENCOUNTER → 2023-06-22 | Outpatient (CLI) | payer MEDICARE ==
[2023-06-22 17:23] LABS: T4, Free (Free Thyroxine) 1.32 ng/dL (0.80-1.80)
== END | disposition home or self-care (01) ==
LOC: LABWHC1 11:55
PROVIDERS: ATTEND Internal Medicine Endocrinology, Diabetes & Metabolism
DX: E05.90 Thyrotoxicosis, unspecified without thyrotoxic crisis or storm (principal)
CPT/HCPCS: 36415; 84439; 84443; 84480

== ENCOUNTER → 2023-10-13 | Outpatient (CLI) | payer MEDICARE ==
--- NOTE | 2023-10-13 11:43 | BD ---
EXAMINATION TYPE: Axial Bone Density DATE OF EXAM: 10/13/2023 CLINICAL HISTORY: 83 years old Female. ICD-10 CODE: Z78.0 menopause Height: 65 in Weight: 152 lbs FRAX RISK QUESTIONS: Family History (Parent hip fracture): yes mother History of Fracture in Adulthood: rt forearm fx age 65 Secondary Osteoporosis: 2. Hyperthyroidism: yes RISK FACTORS HISTORY OF: History of Wrist Fracture: rt wrist age 63 Family History of Osteoporosis: yes mother and son Active: yes Postmenopausal woman: age 58 Take estrogen and/or progesterone medications: not now How lon months Lost more than 2 inches in height since high school: yes 3" MEDICATIONS: Thyroid Medications: yes Which medication: methimazole How Lon years Additional Medications: vit d, blood pressure, pain meds, cholesterol meds, dry eyes meds, EXAM MEASUREMENTS: Bone mineral densitometry was performed using the [employer] [facility]. Bone mineral density as measured about the Lumbar spine is: ----- L1-L4(G/cm2): 1.311 T Score Values are as follows: ----- L1: -0.6 ----- L2: 0.3 ----- L3: 2.4 ----- L4: 1.9 ----- L1-L4: 1.1 Z Score Values are as follows: ----- L1: 1.2 ----- L2: 2.1 ----- L3: 4.2 ----- L4: 3.7 ----- L1-L4: 2.9 Bone mineral density has: Increased 5.1% since study of: 09/01/2021 Bone mineral density about the R hip (g/cm2): 0.850 Bone mineral density about the L hip (g/cm2): 0.877 T Score values are as follows: -----R Neck: -1.5 -----L Neck: -1.2 -----R Total: -1.2 -----L Total: -1.0 Z Score values are as follows: -----R Neck: 0.8 -----L Neck: 1.1 -----R Total: 0.9 -----L Total: 1.2 Bone mineral density has: Decreased -5.1% since study of: 09/01/2021 FRAX%s: The graph provided illustrates a 33.3% chance for a major osteoporotic fx and a 19.3% chance for the hips probability for fx in 10 years time. IMPRESSION: Osteopenia (T Score between -2.5 and -1). There is slightly increased risk of fracture and the patient may be considered for treatment. Re-Screen 2-5 years. NOTE: T-SCORE=SD OF THE YOUNG ADULT MEAN.
--- NOTE | 2023-10-14 13:53 | MM ---
Reason for Exam: Screening (asymptomatic). Last screening mammogram was performed 12 month(s) ago. Patient History: Menarche at age 13. First Full-Term at age 20. Postmenopausal. Patient has history of breast feeding. Risk Values: Skylar 5 year model risk: 1.0%. NCI Lifetime model risk: 1.0%. Prior Study Comparison: 06/17/2020 Bilateral Screening Mammogram, [facility]. 09/01/2021 Bilateral Screening Mammogram, [facility]. 09/16/2022 Bilateral MG 3D screening mammo w/cad, [facility]. Tissue Density: There are scattered fibroglandular densities. Findings: Analyzed By CAD. There is no suspicious group of microcalcifications or new suspicious mass. Overall Assessment: Negative, BI-RAD 1 Management: Screening Mammogram of both breasts in [address] [facility] will attempt to contact patient to return for supplemental views and ultrasound if indicated. Patient should continue monthly self-breast exams. A clinical breast exam by your physician is recommended on an annual basis. This exam should not preclude additional follow-up of suspicious palpable abnormalities. Note on Skylar scores and lifetime risk: 1. A Skylar score greater than 3% is considered moderate risk. If this is the case, consider specialist referral to assess eligibility for a risk reducing agent. 2. If overall lifetime risk for the development of breast cancer is 20% or higher, the patient may qualify for future screening with alternating mammogram and breast MRI. Electronically signed and approved by: Case Chavez DO
== END | disposition home or self-care (01) ==
LOC: RADBDWWP 08:24
PROVIDERS: ATTEND Family Medicine
DX: Z12.31 Encounter for screening mammogram for malignant neoplasm of breast (principal); M85.89 Other specified disorders of bone density and structure, multiple sites; Z78.0 Asymptomatic menopausal state
CPT/HCPCS: 77063; 77067; 77080

== ENCOUNTER → 2023-12-20 | Outpatient (CLI) | payer MEDICARE ==
[2023-12-20 15:23] LABS: Basophils # (A) 0.03 X 10*3/uL (0.00-0.10); Basophils % (A) 0.5 %; Eosinophils # (A) 0.14 X 10*3/uL (0.04-0.35); Eosinophils % (A) 2.3 %; HCT 37.5 % (37.2-46.3); HGB 11.9 g/dL (12.0-15.0); Lymphocytes # (A) 1.46 X 10*3/uL (0.90-5.00); Lymphocytes % (A) 24.3 %; MCHC 31.7 g/dL (32.0-37.0); MCV 91.2 FL (80.0-97.0); Mean Platelet Volume 9.3 FL (9.5-12.2); Monocytes # (A) 0.53 X 10*3/uL (0.20-1.00); Monocytes % (A) 8.8 %; NRBC Per 100 WBC 0 X 10*3/uL (0.00-0.01); Neutrophils # (A) 3.84 X 10*3/uL (1.80-7.70); Neutrophils % (A) 63.9 %; Platelet Count 272 X 10*3/uL (140-440); RBC 4.11 X 10*6/uL (4.10-5.20); WBC 6.01 X 10*3/uL (4.50-10.00)
[2023-12-20 15:48] LABS: BUN/Creat Ratio 26.12 Ratio (12.00-20.00); Blood Urea Nitrogen 20.9 mg/dL (9.0-27.0); Carbon Dioxide 28.2 mmol/L (21.6-31.8); Chloride 104 mmol/L (96-109); Glucose 136 mg/dL (70-110); Potassium 4.4 mmol/L (3.5-5.5); Sodium 142 mmol/L (135-145)
[2023-12-20 15:49] LABS: ALT 17 U/L (8-44); AST 19 U/L (13-35); Albumin/Globulin Ratio 1.38 Ratio (1.60-3.17); Alkaline Phosphatase 86 U/L (41-126); Calcium 10.8 mg/dL (8.7-10.3); Globulin 2.9 g/dL (1.6-3.3); T4, Free (Free Thyroxine) 1.42 ng/dL (0.80-1.80); Total Bilirubin 0.3 mg/dL (0.3-1.2); Total Protein 6.9 g/dL (6.2-8.2)
== END | disposition home or self-care (01) ==
LOC: LABWHC1 10:30
PROVIDERS: ATTEND Family Medicine
DX: E11.42 Type 2 diabetes mellitus with diabetic polyneuropathy (principal); E04.1 Nontoxic single thyroid nodule
CPT/HCPCS: 36415; 80053; 83036; 84439; 84443; 84480; 85025

== ENCOUNTER → 2024-02-29 | Outpatient (CLI) | payer MEDICARE ==
[2024-02-29 19:45] LABS: T4, Free (Free Thyroxine) 0.76 ng/dL (0.80-1.80)
== END | disposition home or self-care (01) ==
LOC: LABWHC1 11:16
PROVIDERS: ATTEND Internal Medicine Endocrinology, Diabetes & Metabolism
DX: E05.20 Thyrotoxicosis with toxic multinodular goiter without thyrotoxic crisis or storm (principal)
CPT/HCPCS: 36415; 84439; 84443; 84480

== ENCOUNTER → 2024-06-26 | Outpatient (CLI) | payer MEDICARE ==
--- NOTE | 2024-07-13 09:58 | US ---
EXAMINATION TYPE: US venous doppler duplex LE RT DATE OF EXAM: 07/12/2024 8:10 AM COMPARISON: NONE CLINICAL INDICATION: Female, 83 years old with history of localized swelling; SIDE PERFORMED: Right TECHNIQUE: The lower extremity deep venous system is examined utilizing real time linear array sonog fazal with graded compression, doppler sonography and color-flow sonography. VESSELS IMAGED: Common Femoral Vein Deep Femoral Vein Greater Saphenous Vein * Femoral Vein Popliteal Vein Small Saphenous Vein * Proximal Calf Veins (* superficial vessels) Right Leg: Negative for DVT; ? Right popliteal cyst vs joint effusion IMPRESSION: Grayscale, color doppler, spectral doppler imaging performed of the deep veins of the lo wer extremities. There is normal flow, compressibility, vascular waveforms.
--- NOTE | 2024-07-25 12:49 | XR ---
Patient Neeta Logan ID [id number] Order # EXAMINATION TYPE: XR foot complete RT DATE OF EXAM: 06/26/2024 COMPARISON: None on PACS downtime HISTORY: Swelling and redness pain great toe TECHNIQUE: 3 view right foot FINDINGS: Osseous Structures appear intact. No acute fracture or dislocation evident. Varus deformity of the fourth digit is evident. There is narrowing of the proximal and distal interphalangeal joint spaces. Hammertoes are present. Soft tissues appear normal. Small plantar calcaneal heel spur is pres ent. Follow up exams can be performed 7-10 days from acute trauma for continued pain. IMPRESSION: 1. No acute osseous abnormality right foot
== END | disposition home or self-care (01) ==
LOC: RADUSWWP 10:30
PROVIDERS: ATTEND Nurse Practitioner Family
DX: R22.41 Localized swelling, mass and lump, right lower limb (principal); M79.674 Pain in right toe(s)

== ENCOUNTER 2024-07-20 16:20 | Inpatient (IN) | payer MEDICARE ==
[2024-07-20] MEDS: ATORVASTATIN 80 MG TAB PO STA (16:39)
--- NOTE | 2024-07-20 16:39 | ED ---
Arrhythmia/Palpitations HPI - General Chief Complaint: Arrhythmia/Palpitations Stated Complaint: Stemi Time Seen by Provider: 07/20/24 16:25 Source: patient Mode of arrival: EMS Limitations: no limitations - History of Present Illness Initial Comments: 83-year-old female presents emergency department reporting chest pain. She states that she got a flu shot yesterday and began having pain in her left arm. Today the pain increased and moved over to her chest. She also had associated nausea with diaphoresis. She has no history of cardiac disease but does admit to high cholesterol and high blood pressure. She called EMS. They found that she had ST segment elevation in 1 and aVL on her EKG. They did activate a STEMI. Patient was given a nitro and states that she had resolution of her pain. Patient was found to be super hypertensive which has improved with nitro. Patient arrives and states that her pain is gone. Handhole Machine Operator activated prior to hospital arrival - Related Data Home Medications Medication Instructions Recorded Confirmed Carboxymethylcellulose Sodium 1 drop BOTH EYES QID PRN 07/20/24 07/20/24 [Refresh Tears] Cholecalciferol [Vitamin D3 (125 125 mcg PO DAILY 07/20/24 07/20/24 Mcg = 5000 Iu)] Diabetic Multivitamin 1 tab PO DAILY 07/20/24 07/20/24 Timolol 0.5% Ophth Soln [Timoptic 1 drop BOTH EYES HS 07/20/24 07/20/24 0.5% Ophth Soln] metFORMIN HCL [Glucophage] 500 mg PO BID 07/20/24 07/20/24 methIMAzole [Tapazole] 22.5 mg PO DAILY 07/20/24 07/20/24 Previous Rx's Medication Instructions Recorded Aspirin [Adult Low Dose Aspirin EC] 81 mg PO DAILY 30 Days #30 tab 07/21/24 Atorvastatin [Lipitor] 80 mg PO DAILY@1730 #30 tab 07/21/24 Clopidogrel [Plavix] 75 mg PO DAILY #30 tab 07/21/24 Nitroglycerin Sl Tabs [Nitrostat] 0.4 mg SUBLINGUAL Q5M PRN #25 tab 07/21/24 Valsartan [Diovan] 160 mg PO BID 30 Days #60 tab 07/21/24 carvediloL [Coreg*] 12.5 mg PO BID-W/MEALS 30 Days #60 07/21/24 tab Allergies Allergy/AdvReac Type Severity Reaction Status Date / Time colesevelam [From WelChol] Allergy Unknown Verified 07/20/24 17:27 Review of Systems ROS Statement: Those systems with pertinent positive or pertinent negative responses have been documented in the HPI. ROS Other: All systems not noted in ROS Statement are negative. Past Medical History Past Medical History: Diabetes Mellitus, Hyperlipidemia, Hypertension History of Any Multi-Drug Resistant Organisms: None Reported Past Surgical History: No Surgical Hx Reported Past Psychological History: No Psychological Hx Reported Smoking Status: Never smoker Past Alcohol Use History: None Reported Past Drug Use History: None Reported General Exam Limitations: no limitations General appearance: alert, in no apparent distress Head exam: Present: atraumatic, normocephalic, normal inspection Eye exam: Present: normal appearance, PERRL, EOMI. Absent: scleral icterus, conjunctival injection, periorbital swelling ENT exam: Present: normal exam, mucous membranes moist Neck exam: Present: normal inspection. Absent: tenderness, meningismus, lymphadenopathy Respiratory exam: Present: normal lung sounds bilaterally. Absent: respiratory distress, wheezes, rales, rhonchi, stridor Cardiovascular Exam: Present: regular rate, tachycardia, normal heart sounds. Absent: systolic murmur, diastolic murmur, rubs, gallop, clicks GI/Abdominal exam: Present: soft, normal bowel sounds. Absent: distended, tende rness, guarding, rebound, rigid Extremities exam: Present: normal inspection, full ROM, normal capillary refill. Absent: tenderness, pedal edema, joint swelling, calf tenderness Back exam: Present: normal inspection Neurological exam: Present: alert, oriented X3, CN II-XII intact Psychiatric exam: Present: normal affect, normal mood Skin exam: Present: warm, dry, intact, normal color. Absent: rash Course Vital Signs 07/20/24 07/20/24 07/20/24 16:21 16:27 16:34 Temperature 97.8 F Pulse Rate 123 H 125 H 117 H Respiratory 18 18 18 Rate Blood Pressure 162/104 154/94 O2 Sat by Pulse 100 98 100 Oximetry 07/20/24 07/20/24 07/20/24 16:36 16:43 16:52 Temperature Pulse Rate 126 H 107 H Respiratory 16 16 16 Rate Blood Pressure 147/95 149/87 154/90 O2 Sat by Pulse 96 99 Oximetry 07/20/24 07/20/24 17:01 19:16 Temperature Pulse Rate 102 H 113 H Respiratory 16 18 Rate Blood Pressure 156/85 124/77 O2 Sat by Pulse 97 99 Oximetry - Reevaluation(s) Reevaluation #1: Handhole Machine Operator activated at 1615 Reevaluation #2: Spoke with Dr. Tyson. Will obtain EKG as patient has arrived to the ED and send to him 07/20/24 1617 Reevaluation #3: EKG has been sent to Dr. Tyson. He recommends blood pressure control with losartan and carvedilol, IV nitro, IV heparin, atorvastatin and he will be down to see patient 07/20/24 1628 Reevaluation #4: Dr. Tyson made aware trop is high 07/20/24 17:25 Medical Decision Making - Medical Decision Making Was pt. sent in by a medical professional or institution (, PA, SENIOR PROPERTY ACCOUNTANT, urgent care, hospital, or snf...) When possible be specific @ -No Did you speak to anyone other than the patient for history (EMS, parent, family, police, friend...)? What history was obtained from this source @ -Woke with EMS for history Did you review nursing and triage notes (agree or disagree)? Why? @ -I reviewed and agree with nursing and triage notes Were old charts reviewed (outside hosp., previous admission, EMS record, old EKG, old radiological studies, urgent care reports/EKG's, snf records)? Report findings @ -No old charts were reviewed Differential Diagnosis (chest pain, altered mental status, abdominal pain women, abdominal pain men, vaginal bleeding, weakness, fever, dyspnea, syncope, headache, dizziness, GI bleed, back pain, seizure, CVA, palpatations, mental health, musculoskeletal)? @ -Differential Chest Pain: Stable Angina, Unstable Angina, STEMI, NSTEMI Aortic Dissection, Pneumothorax, Musculoskeletal, Esophageal Spasm GERD, Cholecystitis, Pancreatitis, Zoster, this is not meant to be an all-inclusive list. EKG interpreted by me (3pts min.). @ -yes and demonstrates sinus tachycardia with a rate of 121. MI interval 159. QRS 114. QTc of 386. ST elevation in aVL. Reciprocal depression is improved from prehospital EKG X-rays interpreted by me (1pt min.). @ -Yes and demonstrates no acute process CT interpreted by me (1pt min.). @ -None done U/S interpreted by me (1pt. min.). @ -None done What testing was considered but not performed or refused? (CT, X-rays, U/S, labs)? Why? @ -None What meds were considered but not given or refused? Why? @ -None Did you discuss the management of the patient with other professionals (professionals i.e. , PA, SENIOR PROPERTY ACCOUNTANT, lab, RT, psych nurse, social problems specialist, sewing machine operator, teacher, us customs and border officer, egg caser)? Give summary @ -Spoke with on-call rand maker and Dr. Wilson for admission Was smoking cessation discussed for >3mins.? @ -No Was critical care preformed (if so, how long)? @ -Yes, 35 minutes for management of STEMI Were there social determinants of health that impacted care today? How? (Homelessness, low income, unemployed, alcoholism, drug addiction, transportation, low edu. Level, literacy, decrease access to med. care, group home, rehab)? @ -No Was there de-escalation of care discussed even if they declined (Discuss DNR or withdrawal of care, Hospice)? DNR status @ -No What co-morbidities impacted this encounter? (DM, HTN, Smoking, COPD, CAD, Cancer, CVA, ARF, Chemo, Hep., AIDS, mental health diagnosis, sleep apnea, morbid obesity)? @ -None Was patient admitted / discharged? Hospital course, mention meds given and route, prescriptions, significant lab abnormalities, going to OR and other pertinent info. @ -Upon arrival patient was placed into trauma 2. We had already activated the Handhole Machine Operator. Patient is evaluated by myself and the rand maker. IV was established. Laboratory studies are conducted. She is initiated on heparin. Patient taken up to the Handhole Machine Operator in stable condition Undiagnosed new problem with uncertain prognosis? @ -No Drug Therapy requiring intensive monitoring for toxicity (Heparin, Nitro, Insulin, Cardizem)? @ -No Were any procedures done? @ -No Diagnosis/symptom? @ -Acute chest pain, STEMI Acute, or Chronic, or Acute on Chronic? @ -Acute Uncomplicated (without systemic symptoms) or Complicated (systemic symptoms)? @ -Complicated Side effects of treatment? @ -No Exacerbation, Progression, or Severe Exacerbation? @ -No Poses a threat to life or bodily function? How? (Chest pain, [place], [place], pneumonia, PE, COPD, DKA, ARF, appy, cholecystitis, CVA, Diverticulitis, Homicidal, Suicidal, threat to staff... and all critical care pts) @ -Yes as patient has ST segment elevation - Lab Data Result diagrams: 07/21/24 07:01 07/21/24 07:01 Lab Results 07/20/24 07/20/24 07/20/24 Range/Units 16:40 16:40 16:40 WBC 9.7 (3.8-10.6) k/uL RBC 4.31 (3.80-5.40) m/uL Hgb 12.9 (11.4-16.0) gm/dL Hct 39.4 (34.0-46.0) % MCV 91.4 (80.0-100.0) fL MCH 30.0 (25.0-35.0) pg MCHC 32.8 (31.0-37.0) g/dL RDW 12.4 (11.5-15.5) % Plt Count 303 (150-450) k/uL MPV 8.0 Neutrophils % 83 % Lymphocytes % 12 % Monocytes % 4 % Eosinophils % 0 % Basophils % 0 % Neutrophils # 8.0 H (1.3-7.7) k/uL Lymphocytes # 1.1 (1.0-4.8) k/uL Monocytes # 0.4 (0-1.0) k/uL Eosinophils # 0.0 (0-0.7) k/uL Basophils # 0.0 (0-0.2) k/uL PT 9.9 L (10.0-12.5) sec INR 0.9 (<1.2) APTT 20.4 L (22.0-30.0) sec Sodium 134 L (137-145) mmol/L Potassium 4.1 (3.5-5.1) mmol/L Chloride 100 (98-107) mmol/L Carbon Dioxide 22 (22-30) mmol/L Anion Gap 12 mmol/L BUN 20 H (7-17) mg/dL Creatinine 0.73 (0.52-1.04) mg/dL Est GFR (CKD-EPI)AfAm 87 (>60 ml/min/1.73 sqM) Est GFR (CKD-EPI)NonAf 76 (>60 ml/min/1.73 sqM) Glucose 253 H (74-99) mg/dL Calcium 10.3 H (8.4-10.2) mg/dL Total Bilirubin 0.5 (0.2-1.3) mg/dL AST 42 H (14-36) U/L ALT 19 (4-34) U/L Alkaline Phosphatase 62 (38-126) U/L Troponin I (0.000-0.034) ng/mL Total Protein 7.1 (6.3-8.2) g/dL Albumin 4.0 (3.5-5.0) g/dL 07/20/24 Range/Units 16:40 WBC (3.8-10.6) k/uL RBC (3.80-5.40) m/uL Hgb (11.4-16.0) gm/dL Hct (34.0-46.0) % MCV (80.0-100.0) fL MCH (25.0-35.0) pg MCHC (31.0-37.0) g/dL RDW (11.5-15.5) % Plt Count (150-450) k/uL MPV Neutrophils % % Lymphocytes % % Monocytes % % Eosinophils % % Basophils % % Neutrophils # (1.3-7.7) k/uL Lymphocytes # (1.0-4.8) k/uL Monocytes # (0-1.0) k/uL Eosinophils # (0-0.7) k/uL Basophils # (0-0.2) k/uL PT (10.0-12.5) sec INR (<1.2) APTT (22.0-30.0) sec Sodium (137-145) mmol/L Potassium (3.5-5.1) mmol/L Chloride (98-107) mmol/L Carbon Dioxide (22-30) mmol/L Anion Gap mmol/L BUN (7-17) mg/dL Creatinine (0.52-1.04) mg/dL Est GFR (CKD-EPI)AfAm (>60 ml/min/1.73 sqM) Est GFR (CKD-EPI)NonAf (>60 ml/min/1.73 sqM) Glucose (74-99) mg/dL Calcium (8.4-10.2) mg/dL Total Bilirubin (0.2-1.3) mg/dL AST (14-36) U/L ALT (4-34) U/L Alkaline Phosphatase (38-126) U/L Troponin I 0.830 H* (0.000-0.034) ng/mL Total Protein (6.3-8.2) g/dL Albumin (3.5-5.0) g/dL Disposition Clinical Impression: STEMI (ST elevation myocardial infarction) Disposition: ADMITTED IP TO THIS [facility] Condition: Good Is patient prescribed a controlled substance at d/c from ED?: No Time of Disposition: 17:38 Decision to Admit Reason: Admit from EC Decision Date: 07/20/24 Decision Time: 17:38
[2024-07-20] MEDS: NITROGLYCERIN-D5W PMX 50 MG in DEXTROSE/WATER 1 250ML.BAG IV ONE (16:40)
[2024-07-20] MEDS: HEPARIN SODIUM 1,000 UN/ML (10ML VL) IV ONE (16:41)
[2024-07-20] MEDS: SODIUM CHLORIDE 0.9% 1,000 ML IV STA (16:44)
[2024-07-20] MEDS: HEPARIN SOD,PORK IN 0.45% NACL 25,000 UNIT in 0.45% NACL 1 250ML.BAG IV SCH (16:50)
--- NOTE | 2024-07-20 16:57 | XR ---
EXAMINATION TYPE: XR chest 1V portable DATE OF EXAM: 07/20/2024 4:39 PM CLINICAL INDICATION: Female, 83 years old with history of chest pain; PH[facility] COMPARISON: None TECHNIQUE: XR chest 1V portable Frontal view of the chest. FINDINGS: Lungs/Pleura: There is no evidence of pleural effusion, focal consolidation, or pneumothorax. Pulmonary vascularity: Unremarkable. Heart/mediastinum: Cardiomediastinal silhouette is unremarkable. Musculoskeletal: No acute osseous pathology. IMPRESSION: No acute cardiopulmonary disease/process.
[2024-07-20] MEDS: carvediloL 6.25 MG TAB PO SCH (17:00)
[2024-07-20 17:07] LABS: Basophils % (A) 0 %; Eosinophils % (A) 0 %; HCT 39.4 % (34.0-46.0); HGB 12.9 gm/dL (11.4-16.0); Lymphocytes # (A) 1.1 k/uL (1.0-4.8); Lymphocytes % (A) 12 %; MCHC 32.8 g/dL (31.0-37.0); MCV 91.4 fL (80.0-100.0); Monocytes # (A) 0.4 k/uL (0-1.0); Monocytes % (A) 4 %; Neutrophils % (A) 83 %; Platelet Count 303 k/uL (150-450); RBC 4.31 m/uL (3.80-5.40); RDW 12.4 % (11.5-15.5); WBC 9.7 k/uL (3.8-10.6)
[2024-07-20 17:13] LABS: ALT 19 U/L (4-34); AST 42 U/L (14-36); African American GFR (CKD) 87 (>60 ml/min/1.73 sqM); Alkaline Phosphatase 62 U/L (38-126); Anion Gap 12 mmol/L; Blood Urea Nitrogen 20 mg/dL (7-17); Calcium 10.3 mg/dL (8.4-10.2); Carbon Dioxide 22 mmol/L (22-30); Chloride 100 mmol/L (98-107); Glucose 253 mg/dL (74-99); INR 0.9 (<1.2); Non-African American GFR(CKD) 76 (>60 ml/min/1.73 sqM); Potassium 4.1 mmol/L (3.5-5.1); Prothrombin Time 9.9 sec (10.0-12.5); Sodium 134 mmol/L (137-145); Total Bilirubin 0.5 mg/dL (0.2-1.3); Total Protein 7.1 g/dL (6.3-8.2)
[2024-07-20 17:27] LABS: Partial Thromboplastin Time 20.4 sec (22.0-30.0)
[2024-07-20] MEDS ORDERED: NALOXONE 0.4 MG/ML 1 ML VIAL IV PRN ×2 (17:39→17:41)
[2024-07-20] MEDS ORDERED: MORPHINE SULFATE 4 MG/ML SYRINGE IV PRN (17:39)
[2024-07-20] MEDS ORDERED: ONDANSETRON 4 MG/2 ML VIAL IVP PRN (17:39)
--- NOTE | 2024-07-20 18:26 | P.CRDCN ---
History of Present Illness History of present illness: This is Dr. Tyson dictating a consult on this patient The patient was interviewed and examined IMPRESSION / ASSESSMENT: Non-Q wave myocardial infarction, dynamic ST segment abnormalities in the high lateral leads Stuttering symptoms of the last several weeks worse since yesterday Uncontrolled hypertension, hypertensive urgency Type 2 diabetes PLAN: Continue antiplatelet therapy high-dose statins heparin nitroglycerin and beta- blockers Start valsartan in place of lisinopril hydrochlorothiazide Proceed with coronary angiography today. Discussed with the ER team and Dr. Marie HPI 83-year-old female who has been experiencing arm discomfort, left arm for the last several weeks She thought it was because she was lifting a lot of weights and heavy objects Yesterday she had a flu shot and received an injection in the left deltoid. Following that she started experiencing the arm discomfort once again but this time it was a lot more intense and was associated with sweating and feeling a little dizzy She finally called the EMS and was brought to the ER Initial EKG suggested a subtle 1 mm elevation in leads I and aVL. She received sublingual nitroglycerin in the field and by the time she arrived in the ER she was completely pain-free. However she was extremely hypertensive, especially diastolic blood pressure was 162/104 mmHg pulse rate was 120 230 beats a minute she was afebrile She was treated with aspirin, high-dose atorvastatin, IV nitroglycerin, IV hepa rin and carvedilol 6.25 mg twice daily Subsequently her blood pressure improved heart rates improved However sometime back the discomfort in the arm reappeared. When I examined her she looked quite comfortable Heart sounds S1-S2 normal no murmurs no gallop She has a history of diabetes type 2, hypertension and dyslipidemia She also has hyperthyroidism and is on methimazole ROS: No fever chills or rigors, no cough, phlegm or expectoration, no nausea, vomiting or diarrhea, no hematuria, dysuria, no musculoskeletal complaints, no strokes or seizures, no skin lesions. EXAMINATION: On medical treatment her blood pressure is 149/87 mmHg pulse rate of 117 beats a minute afebrile Breath sounds are clear Heart sounds S1-S2 tachycardic but no murmurs or gallop She looks comfortable No JVD REVIEW OF LABS, ECG & MEDICAL DATA Medications at home include methimazole, metformin, Mobic, lovastatin 40 mg p.o. daily and lisinopril hydrochlorothiazide a total of 40/25 mg p.o. daily White count 9.7 thousand, hematocrit 39, hemoglobin 12.9 Sodium 134, potassium 4.1 BUN 20 and creatinine 0.73 Troponin 0.8 Past Medical History Past Medical History: Diabetes Mellitus, Hyperlipidemia, Hypertension History of Any Multi-Drug Resistant Organisms: None Reported Past Surgical History: No Surgical Hx Reported Past Psychological History: No Psychological Hx Reported Smoking Status: Never smoker Past Alcohol Use History: None Reported Past Drug Use History: None Reported Medications and Allergies Home Medications Medication Instructions Recorded Confirmed Type Carboxymethylcellulose Sodium 1 drop BOTH EYES QID PRN 07/20/24 07/20/24 History [Refresh Tears] Cholecalciferol [Vitamin D3 (125 125 mcg PO DAILY 07/20/24 07/20/24 History Mcg = 5000 Iu)] Diabetic Multivitamin 1 tab PO DAILY 07/20/24 07/20/24 History Lisinopril-Hctz 20-12.5 mg 1 tab PO BID 07/20/24 07/20/24 History [Zestoretic 20-12.5] Lovastatin [Mevacor] 40 mg PO DAILY 07/20/24 07/20/24 History Meloxicam [Mobic] 15 mg PO DAILY PRN 07/20/24 07/20/24 History Timolol 0.5% Ophth Soln [Timoptic 1 drop BOTH EYES HS 07/20/24 07/20/24 History 0.5% Ophth Soln] metFORMIN HCL [Glucophage] 500 mg PO BID 07/20/24 07/20/24 History methIMAzole [Tapazole] 22.5 mg PO DAILY 07/20/24 07/20/24 History Allergies Allergy/AdvReac Type Severity Reaction Status Date / Time colesevelam [From WelChol] Allergy Unknown Verified 07/20/24 17:27 Physical Exam Vitals: Vital Signs Temp Pulse Resp BP Pulse Ox 07/20/24 17:01 102 H 16 156/85 97 07/20/24 16:52 107 H 16 154/90 07/20/24 16:43 16 149/87 99 07/20/24 16:36 126 H 16 147/95 96 07/20/24 16:34 117 H 18 154/94 100 07/20/24 16:27 125 H 18 162/104 98 07/20/24 16:21 97.8 F 123 H 18 100 Intake and Output 07/20/24 07/20/24 07/20/24 06:59 14:59 22:59 Intake Total 1.15 Balance 1.15 Intake: Intake, IV Titration 1.15 Amount Nitroglycerin-D5w Pmx 50 1.15 mg In Dextrose/Water 1 250ml.bag @ 20 MCG/MIN 6 mls/hr IV .Q24H ONE Rx#: [id number] Other: Weight 72.575 kg Results 07/20/24 16:40 07/20/24 16:40 Cardiac Enzymes 07/20/24 07/20/24 Range/Units 16:40 16:40 AST 42 H (14-36) U/L Troponin I 0.830 H* (0.000-0.034) ng/mL Coagulation 07/20/24 Range/Units 16:40 PT 9.9 L (10.0-12.5) sec APTT 20.4 L (22.0-30.0) sec CBC 07/20/24 Range/Units 16:40 WBC 9.7 (3.8-10.6) k/uL RBC 4.31 (3.80-5.40) m/uL Hgb 12.9 (11.4-16.0) gm/dL Hct 39.4 (34.0-46.0) % Plt Count 303 (150-450) k/uL Comprehensive Metabolic Panel 07/20/24 Range/Units 16:40 Sodium 134 L (137-145) mmol/L Potassium 4.1 (3.5-5.1) mmol/L Chloride 100 (98-107) mmol/L Carbon Dioxide 22 (22-30) mmol/L BUN 20 H (7-17) mg/dL Creatinine 0.73 (0.52-1.04) mg/dL Glucose 253 H (74-99) mg/dL Calcium 10.3 H (8.4-10.2) mg/dL AST 42 H (14-36) U/L ALT 19 (4-34) U/L Alkaline Phosphatase 62 (38-126) U/L Total Protein 7.1 (6.3-8.2) g/dL Albumin 4.0 (3.5-5.0) g/dL Current Medications Generic Name Dose Route Start Last Admin Trade Name Freq PRN Reason Stop Dose Admin Carvedilol 6.25 mg 07/20/24 16:37 07/20/24 17:00 Carvedilol 6.25 Mg Tab PO 6.25 mg BID CIERRA Administration Nitroglycerin/Dextrose 50 mg/ 250 mls @ 6 mls/hr 07/20/24 16:30 07/20/24 17:26 IV Solution IV 07/21/24 16:29 20 mcg/min .Q24H ONE 6 mls/hr Titration Protocol 20 MCG/MIN Heparin Sodium/Sodium Chloride 250 mls @ 8.709 mls/hr 07/20/24 16:45 07/20/24 16:50 25,000 unit/ Sodium Chloride IV 12 units/kg/hr .Q24H CIERRA 8.709 mls/hr Administration Protocol 12 UNITS/KG/HR Morphine Sulfate 4 mg 07/20/24 17:39 Morphine Sulfate 4 Mg/Ml Syringe IV Q4HR PRN Severe Pain (Scale 7 to 10) Naloxone HCl 0.2 mg 07/20/24 17:39 Naloxone 0.4 Mg/Ml 1 Ml Vial IV Q2M PRN Opioid Reversal Ondansetron HCl 4 mg 07/20/24 17:39 Ondansetron 4 Mg/2 Ml Vial IVP Q8HR PRN Nausea And Vomiting Valsartan 160 mg 07/20/24 21:00 Valsartan 160 Mg Tab PO BID CIERRA Intake and Output 07/20/24 07/20/24 07/20/24 06:59 14:59 22:59 Intake Total 1.15 Balance 1.15 Intake: Intake, IV Titration 1.15 Amount Nitroglycerin-D5w Pmx 50 1.15 mg In Dextrose/Water 1 250ml.bag @ 20 MCG/MIN 6 mls/hr IV .Q24H ONE Rx#: [id number] Other: Weight 72.575 kg Patient Weight 07/21/24 06:59 Weight 72.575 kg 07/20/24 16:40 07/20/24 16:40
[2024-07-20] MEDS: IV FLUID CONTINUATION 1,000 ML IV ONE ×2 (19:11→19:31)
[2024-07-20] MEDS ORDERED: HEPARIN SODIUM 1,000 UN/ML (10ML VL) ONE (19:29)
[2024-07-20] MEDS: MIDAZOLAM 2 MG/2 ML VIAL IVP ONE (19:35)
[2024-07-20] MEDS: LIDOCAINE 1% INJ 10MG/ML (20 ML MDV) SQ ONE (19:40)
[2024-07-20] MEDS: VERAPAMIL SYRINGE (5 MG/10 ML) INTRAARTER ONE (19:42)
[2024-07-20] MEDS: IOPAMIDOL-370 100ML BTL INJ ONE (19:50)
[2024-07-20] MEDS ORDERED: RX INFO: IV CONTRAST WAS GIVEN 1 EACH MISC MISCELLANE PRN (19:54)
--- NOTE | 2024-07-20 19:56 | P.PCN ---
Date of Procedure: 07/20/24 Operative Findings: CARDIAC CATHETERIZATION PERFORMING PHYSICIAN: Rommel Marie MD, RPVI PROCEDURE PERFORMED: 1. Selective right and left coronary angiogram 2. Left heart catheterization 3. Ultrasound-guided access of the right radial artery INDICATION: Acute coronary syndrome COMPLICATION: None APPROACH: Right radial artery LEVEL OF SEDATION: Moderate with a sedation length of 18 minutes PROCEDURE DESCRIPTION: After obtaining an informed consent, the patient was brought to cardiac medical lab tech instructor. Local anesthesia was performed using lidocaine subcutaneously. The right radial artery was cannulated using Seldinger technique, the guidewire passed easily, following that we advanced a 5-[place] sheath dilator assembly, the wire and dilator were removed and sheath was flushed. Following that, 2 mg of verapamil along with 2000 unit heparin were given. Selective right and left coronary angiogram using a 6-[place] JR4 and JL 3.5 catheters. Following that we did left heart catheterization using 6-[place] pigtail catheter. The procedure was completed there was no complication. SELECTIVE CORONARY ANGIOGRAM: The right coronary artery: Large caliber vessel and a dominant vessel with mild to moderate disease with no high-grade stenosis identified Left main: Has mild disease only The left circumflex: Large-caliber vessel nondominant vessel with mild disease only The left anterior descending artery: Large-caliber vessel with mild to moderate disease with no high-grade stenosis and gives rise into a large diagonal branch which has moderate disease with BASIL II flow HEMODYNAMICS: The LVEDP was 18 mmHg with no significant gradient across aortic valve CONCLUSION: 1. Mild to moderate nonobstructive coronary artery disease with BASIL-2 flow in the diagonal branch of the LAD 2. Elevated left-sided filling pressure POSTPROCEDURE MANAGEMENT: Consider dual antiplatelet therapy along with high intensity statin and anti- ischemic medication and obtain an echocardiogram
[2024-07-20 20:56] LABS: Glucose,Whole Blood 133 mg/dL (70-110)
[2024-07-20] MEDS: VALSARTAN 160 MG TAB PO SCH (21:11)
[2024-07-20] MEDS: SODIUM CHLORIDE 0.9% 1,000 ML IV SCH (21:14)
[2024-07-20 23:34] LABS: T4, Free (Free Thyroxine) 1.24 ng/dL (0.78-2.19)
[2024-07-21 05:54] LABS: Glucose,Whole Blood 159 mg/dL (70-110)
[2024-07-21] MEDS: carvediloL 12.5 MG TAB PO SCH (06:20)
[2024-07-21 07:31] LABS: Basophils % (A) 0 %; Eosinophils # (A) 0.1 k/uL (0-0.7); Eosinophils % (A) 1 %; HCT 33.3 % (34.0-46.0); HGB 10.9 gm/dL (11.4-16.0); Lymphocytes # (A) 1.3 k/uL (1.0-4.8); Lymphocytes % (A) 15 %; MCH 29.8 pg (25.0-35.0); MCHC 32.7 g/dL (31.0-37.0); MCV 91.2 fL (80.0-100.0); Mean Platelet Volume 7.1; Monocytes # (A) 0.8 k/uL (0-1.0); Monocytes % (A) 9 %; Neutrophils # (A) 6.3 k/uL (1.3-7.7); Neutrophils % (A) 74 %; Platelet Count 255 k/uL (150-450); RBC 3.65 m/uL (3.80-5.40); RDW 12.5 % (11.5-15.5); WBC 8.6 k/uL (3.8-10.6)
[2024-07-21] MEDS: ASPIRIN 81 MG PO SCH (07:50)
[2024-07-21] MEDS: CLOPIDOGREL 75 MG TAB PO SCH (07:50)
[2024-07-21 08:38] LABS: African American GFR (CKD) >90 (>60 ml/min/1.73 sqM); Anion Gap 6 mmol/L; Blood Urea Nitrogen 14 mg/dL (7-17); Calcium 9.7 mg/dL (8.4-10.2); Carbon Dioxide 22 mmol/L (22-30); Chloride 107 mmol/L (98-107); Glucose 158 mg/dL (74-99); Non-African American GFR(CKD) 80 (>60 ml/min/1.73 sqM); Sodium 135 mmol/L (137-145)
[2024-07-21] MEDS ORDERED: ATORVASTATIN 80 MG TAB PO SCH (09:00)
[2024-07-21 11:38] LABS: Glucose,Whole Blood 144 mg/dL (70-110)
--- NOTE | 2024-07-21 14:31 | P.PN ---
Subjective Progress Note Date: 07/21/24 Progress note Patient is doing well from cardiovascular standpoint. She denies any chest pain chest pressure symptoms overnight. Her right radial access site is appearing to be intact with good healing process. Patent hemostasis is seen. Blood pressure is well-controlled. No concerns of arrhythmia on telemetry IMPRESSION / ASSESSMENT: Non-Q wave myocardial infarction, dynamic ST segment abnormalities in the high lateral leads, Cardiac cath showed moderate size diagonal 1 with BASIL II flow mild plaque is not amenable for intervention as per Dr. Landers. She is treated with dual antiplatelet therapy and 12 hours of IV nitroglycerin drip. ECG in the morning showed resolution of ST changes noticed in the left lateral leads Stuttering symptoms of the last several weeks worse since yesterday Uncontrolled hypertension, hypertensive urgency Type 2 diabetes Low TSH, normal T4. PLAN Continue aspirin and Plavix for next 12 months without any interruptions. Continue high intensity statin Lipitor 80 mg daily Start Coreg 12.5 mg twice daily Continue valsartan 160 mg twice daily She is on metformin 500 mg twice daily for diabetes. At this time it is well- controlled, she does not have any signs of congestive heart failure. May consider SGLT2 on outpatient basis Discharge around sublingual nitroglycerin Educated the patient on how to use nitroglycerin, use it for substernal chest pressure, diaphoresis symptoms that she presented to the hospital with. She can use it 2-3 times a day but if she is needing it more than that, recommended her to come to the ER Recommend outpatient follow-up with Dr. Tyson in next 1 to 2 weeks Consider outpatient evaluation of this low TSH and see if this is related to her supplement use or actually she has hypothyroidism. Okay to dc HPI 83-year-old female who has been experiencing arm discomfort, left arm for the last several weeks She thought it was because she was lifting a lot of weights and heavy objects Yesterday she had a flu shot and received an injection in the left deltoid. Following that she started experiencing the arm discomfort once again but this time it was a lot more intense and was associated with sweating and feeling a little dizzy She finally called the EMS and was brought to the ER Initial EKG suggested a subtle 1 mm elevation in leads I and aVL. She received sublingual nitroglycerin in the field and by the time she arrived in the ER she was completely pain-free. However she was extremely hypertensive, especially diastolic blood pressure was 162/104 mmHg pulse rate was 120 230 beats a minute she was afebrile She was treated with aspirin, high-dose atorvastatin, IV nitroglycerin, IV heparin and carvedilol 6.25 mg twice daily Subsequently her blood pressure improved heart rates improved However sometime back the discomfort in the arm reappeared. When I examined her she looked quite comfortable Heart sounds S1-S2 normal no murmurs no gallop She has a history of diabetes type 2, hypertension and dyslipidemia She also has hyperthyroidism and is on methimazole Objective - Vital Signs Vital signs: Vital Signs Temp 99.7 F H 07/21/24 12:06 Pulse 107 H 07/21/24 12:06 Resp 16 07/21/24 12:06 BP 112/65 07/21/24 12:06 Pulse Ox 97 07/21/24 12:52 FiO2 Intake & Output 07/20/24 07/21/24 07/21/24 18:59 06:59 18:59 Intake Total 1.15 640 446.1 Output Total 1350 Balance 1.15 -710 446.1 Weight 72.575 kg 72.8 kg Intake: IV 100 Intake, IV Titration 1.15 88.1 Amount Nitroglycerin-D5w Pmx 50 1.15 88.1 mg In Dextrose/Water 1 250ml.bag @ 20 MCG/MIN 6 mls/hr IV .Q24H ONE Rx#: [id number] Oral 540 358 Output: Urine 1350 Other: Voiding Method Toilet Toilet - Labs CBC & Chem 7: 07/21/24 07:01 07/21/24 07:01 Labs: Abnormal Lab Results - Last 24 Hours (Table) 07/20/24 07/20/24 07/20/24 Range/Units 16:40 16:40 16:40 RBC (3.80-5.40) m/uL Hgb (11.4-16.0) gm/dL Hct (34.0-46.0) % Neutrophils # 8.0 H (1.3-7.7) k/uL PT 9.9 L (10.0-12.5) sec APTT 20.4 L (22.0-30.0) sec Sodium 134 L (137-145) mmol/L BUN 20 H (7-17) mg/dL Glucose 253 H (74-99) mg/dL POC Glucose (mg/dL) (70-110) mg/dL Calcium 10.3 H (8.4-10.2) mg/dL AST 42 H (14-36) U/L Troponin I (0.000-0.034) ng/mL TSH (0.465-4.680) mIU/L 07/20/24 07/20/24 07/20/24 Range/Units 16:40 20:53 21:19 RBC (3.80-5.40) m/uL Hgb (11.4-16.0) gm/dL Hct (34.0-46.0) % Neutrophils # (1.3-7.7) k/uL PT (10.0-12.5) sec APTT (22.0-30.0) sec Sodium (137-145) mmol/L BUN (7-17) mg/dL Glucose (74-99) mg/dL POC Glucose (mg/dL) 133 H (70-110) mg/dL Calcium (8.4-10.2) mg/dL AST (14-36) U/L Troponin I 0.830 H* 5.440 H* (0.000-0.034) ng/mL TSH (0.465-4.680) mIU/L 07/20/24 07/20/24 07/21/24 Range/Units 21:19 23:48 05:51 RBC (3.80-5.40) m/uL Hgb (11.4-16.0) gm/dL Hct (34.0-46.0) % Neutrophils # (1.3-7.7) k/uL PT (10.0-12.5) sec APTT (22.0-30.0) sec Sodium (137-145) mmol/L BUN (7-17) mg/dL Glucose (74-99) mg/dL POC Glucose (mg/dL) 159 H (70-110) mg/dL Calcium (8.4-10.2) mg/dL AST (14-36) U/L Troponin I 5.650 H* (0.000-0.034) ng/mL TSH <0.015 L (0.465-4.680) mIU/L 07/21/24 07/21/24 07/21/24 Range/Units 07:01 07:01 11:37 RBC 3.65 L (3.80-5.40) m/uL Hgb 10.9 L (11.4-16.0) gm/dL Hct 33.3 L (34.0-46.0) % Neutrophils # (1.3-7.7) k/uL PT (10.0-12.5) sec APTT (22.0-30.0) sec Sodium 135 L (137-145) mmol/L BUN (7-17) mg/dL Glucose 158 H (74-99) mg/dL POC Glucose (mg/dL) 144 H (70-110) mg/dL Calcium (8.4-10.2) mg/dL AST (14-36) U/L Troponin I (0.000-0.034) ng/mL TSH (0.465-4.680) mIU/L
--- NOTE | 2024-07-21 15:39 | CA ---
Transthoracic Echo Report Name: Neeta Palumbo Age: 83 Gender: F : 1940 Exam Date: 07/21/2024 09:45 Exam Location: [place] [facility] Ht (in): 67 Wt (lb): 160 Ordering Physician: Rommel Marie MD ([id number]) Attending/Referring Phys: Boat Person Kaylynn Abbasi RDCS Procedure CPT: Indications: ACS Cardiac Hx: Technical Quality: Fair Contrast 1: Definity Total Dose (mL): 2 Contrast 2: Total Dose (mL): MEASUREMENTS (Male / Female) Normal Values 2D ECHO LV Diastolic Diameter PLAX 3.8 cm 4.2 - 5.9 / 3.9 - 5.3 cm LV Systolic Diameter PLAX 2.8 cm IVS Diastolic Thickness 1.1 cm 0.6 - 1.0 / 0.6 - 0.9 cm LVPW Diastolic Thickness 1.1 cm 0.6 - 1.0 / 0.6 - 0.9 cm LV Relative Wall Thickness 0.6 LVOT Diameter 2.1 cm LV Diastolic Volume MOD BP 75.3 cm??? 67 - 155 / 56 - 104 cm??? LV Systolic Volume MOD BP 36.7 cm??? 22 - 58 / 19 - 49 cm??? LV Ejection Fraction MOD BP 51.3 % >= 55 % LV Cardiac Index MOD BP 1827.1 cm???/min???m??? LV Diastolic Volume MOD 4C 73.1 cm??? LV Systolic Volume MOD 4C 32.7 cm??? LV Ejection Fraction MOD 4C 55.3 % LV Cardiac Index MOD 4C 1910.7 cm???/min???m??? LV Diastolic Length 4C 7.6 cm LV Systolic Length 4C 6.1 cm LV Diastolic Volume MOD 2C 77.4 cm??? LV Systolic Volume MOD 2C 39.1 cm??? LV Ejection Fraction MOD 2C 49.6 % LV Cardiac Index MOD 2C 1813.1 cm???/min???m??? LV Diastolic Length 2C 7.5 cm LV Systolic Length 2C 6.5 cm LA Volume 55.1 cm??? 18 - 58 / 22 - 52 cm??? LA Volume Index 29.6 cm???/m??? 16 - 28 cm???/m??? Ascending Aorta Diameter 3.6 cm DOPPLER AV Peak Velocity 155.1 cm/s AV Peak Gradient 9.6 mmHg AV Mean Velocity 105.7 cm/s AV Mean Gradient 5.0 mmHg AV Velocity Time Integral 28.3 cm LVOT Peak Velocity 99.5 cm/s LVOT Peak Gradient 4.0 mmHg LVOT Velocity Time Integral 19.5 cm LVOT Stroke Volume 66.4 cm??? LVOT Stroke Volume Index 36.1 ml/m??? LVOT Cardiac Index 3137.4 cm???/min???m??? AV Area Cont Eq vti 2.3 cm??? AV Area Cont Eq pk 2.2 cm??? TR Peak Velocity 228.1 cm/s TR Peak Gradient 20.8 mmHg Right Atrial Pressure 5.0 mmHg Pulmonary Artery Systolic Pressu 25.8 mmHg Right Ventricular Systolic Press 25.8 mmHg PV Peak Velocity 103.6 cm/s PV Peak Gradient 4.3 mmHg FINDINGS Left Ventricle Left ventricular ejection fraction is estimated at 50-55 %. Mildly increased septal wall thickness. Mildly increased posterior wall thickness. Mildly decreased left ventricular ejection fraction with regional variability. Right Ventricle Normal right ventricular size and function. Right ventricular systolic pressure within normal limits. Right Atrium Normal right atrial size. Left Atrium Mildly increased left atrial volume. Mitral Valve Mitral valve thickened. No evidence for mitral valve prolapse. Minimal mitral stenosis. Trace mitral regurgitation. Mitral annular calcification. Aortic Valve Trileaflet aortic valve. No aortic valve stenosis or regurgitation. Tricuspid Valve Structurally normal tricuspid valve. No tricuspid stenosis. Mild tricuspid regurgitation. Pulmonic Valve Pulmonic valve not well visualized. No pulmonic stenosis. No pulmonic regurgitation. Pericardium No pericardial effusion. Aorta Normal size aortic root and proximal ascending aorta. CONCLUSIONS Left ventricular ejection fraction is estimated at 50-55 %. Mild concentric LVH Normal RV size and systolic function Mild left atrial dilatation No significant valvular dysfunction Previewed by: Dr Mike Oswald (Electronically Signed) Final Date: 21 July 2024 15:38
--- NOTE | 2024-07-21 16:00 | P.HPIM ---
History of Present Illness H&P Date: 07/21/24 Patient is an 83-year-old female with past medical history of hypertension, diabetes mellitus type 2, hyperlipidemia who presented to the emergency department with worsening left arm pain for 1 day. She states that she received flu vaccine in the left deltoid on and initially attributed the arm pain to that, but then she had increased pain and sweating and decided to call EMS. When EMS arrived she was noted to be hypertensive and have ST segment elevation in lead I and aVL on EKG, STEMI was activated, she was given nitro and states that her pain resolved. She has no history of cardiac disease. At the time of admission she endorses lightheadedness, dizziness, weakness, left arm a elvin; denies chest pain, nausea, vomiting, shortness of breath, abdominal pain. She was subsequently taken to the cardiac [facility] where she had coronary angiogram and left heart catheterization showing: Mild to moderate nonobstructive coronary artery disease with TIMI2 flow of the diagonal branch of the LAD and elevated left-sided filling pressure. Recommendations were for dual antiplatelet therapy along with high intensity statin and anti-ischemic medication. Today, patient denies chest pain, shortness of breath, abdominal pain, nausea, vomiting, left arm pain. EKG showed ST segment elevation in lead I and aVL. Chest x-ray was unremarkable. Troponins: 0.830, 5.440, 5.650. TSH <0.015 Afebrile, hypertensive, tachycardic. BP: 162/104, HR: 125 ED documentation reviewed. Review of systems: Pertinent positives and negatives as discussed in HPI, a complete review of systems was performed and all other systems are negative. Family history: father - [facility], mother - [facility] Social history: Tobacco: denies Alcohol: denies Recreational drugs: denies Travel: denies Occupation: retired Physical examination: Vital signs reviewed General: No acute distress Derm: No unusual rashes/lesions, warm Head: Atraumatic normocephalic, symmetric Eyes: EOMI, no lid lag, anicteric sclera, pupils equal round reactive to light ENT: Nose and ears atraumatic Neck: No cervical lymphadenopathy, trachea midline, supple Mouth: No lip lesion, mucus membranes moist Cardiovascular: S1S2 present, regular rate and rhythm, no murmurs, rubs, or gallops Lungs: CTA bilateral, no rhonchi, no rales, no accessory muscle use Abdominal: Soft, nontender to palpation, no guarding Ext: Muscle strength 5 out of 5 in all 4 extremities grossly, no gross muscle atrophy, no contractures, dorsalis pedis pulses bilaterally, no edema Neuro: CN II-XI grossly intact, no gross focal neuro deficits Psych: Alert, oriented, appropriate affect and mood Assessment/Plan: #. STEMI Status post cardiac catheterization - mild to moderate nonobstructive coronary artery disease with TIMI2 flow of the diagonal branch of the LAD and elevated left-sided filling pressure Aspirin 81 mg daily Plavix 75 mg daily Lipitor 80 mg daily Coreg 12.5 mg twice daily Cardiology following #. Hyperthyroidism Currently taking methimazole 22.5 mg daily at home - consider increasing outpatient with PCP upon discharge #. Diabetes mellitus type 2 Monitor glucose control #. Hypertension Continue medications per cardiology DVT prophylaxis: Aspirin and Plavix Chronic conditions: Hypertension, diabetes mellitus type 2, hyperlipidemia, hyperthyroidism, thyroid eye disease The patient is admitted with an anticipated less than than 2 midnight stay for evaluation of STEMI CODE STATUS: Full code Discussed with: Patient Anticipated discharge place: Home Attestation: I have personally seen and examined the patient with Resident, reviewed the documentation and participated and agree with the assessment and plan as written. Past Medical History Past Medical History: Diabetes Mellitus, Hyperlipidemia, Hypertension History of Any Multi-Drug Resistant Organisms: None Reported Past Surgical History: No Surgical Hx Reported Past Psychological History: No Psychological Hx Reported Smoking Status: Never smoker Past Alcohol Use History: None Reported Past Drug Use History: None Reported Medications and Allergies Home Medications Medication Instructions Recorded Confirmed Type Carboxymethylcellulose Sodium 1 drop BOTH EYES QID PRN 07/20/24 07/20/24 History [Refresh Tears] Cholecalciferol [Vitamin D3 (125 125 mcg PO DAILY 07/20/24 07/20/24 History Mcg = 5000 Iu)] Diabetic Multivitamin 1 tab PO DAILY 07/20/24 07/20/24 History Timolol 0.5% Ophth Soln [Timoptic 1 drop BOTH EYES HS 07/20/24 07/20/24 History 0.5% Ophth Soln] metFORMIN HCL [Glucophage] 500 mg PO BID 07/20/24 07/20/24 History methIMAzole [Tapazole] 22.5 mg PO DAILY 07/20/24 07/20/24 History Aspirin [Adult Low Dose Aspirin EC] 81 mg PO DAILY 30 Days #30 tab 07/21/24 Rx Atorvastatin [Lipitor] 80 mg PO DAILY@1730 #30 tab 07/21/24 Rx Clopidogrel [Plavix] 75 mg PO DAILY #30 tab 07/21/24 Rx Nitroglycerin Sl Tabs [Nitrostat] 0.4 mg SUBLINGUAL Q5M PRN #25 tab 07/21/24 Rx Valsartan [Diovan] 160 mg PO BID 30 Days #60 tab 07/21/24 Rx carvediloL [Coreg*] 12.5 mg PO BID-W/MEALS 30 Days #60 07/21/24 Rx tab Allergies Allergy/AdvReac Type Severity Reaction Status Date / Time colesevelam [From WelChol] Allergy Unknown Verified 07/20/24 17:27 Physical Exam Vitals: Vital Signs Temp Pulse Pulse Pulse Resp BP BP 07/21/24 07:42 98.1 F 102 H 16 104/58 07/21/24 04:00 100 16 124/71 07/20/24 23:39 86 16 124/68 07/20/24 22:39 68 16 148/72 07/20/24 21:39 98.1 F 74 16 145/78 07/20/24 20:39 97.7 F 78 16 150/80 07/20/24 19:16 113 H 18 124/77 07/20/24 17:01 102 H 16 156/85 07/20/24 16:52 107 H 16 154/90 07/20/24 16:43 16 149/87 07/20/24 16:36 126 H 16 147/95 07/20/24 16:34 117 H 18 154/94 07/20/24 16:27 125 H 18 162/104 07/20/24 16:21 97.8 F 123 H 18 Pulse Ox 07/21/24 07:42 96 07/21/24 04:00 97 07/20/24 23:39 97 07/20/24 22:39 98 07/20/24 21:39 99 07/20/24 20:39 98 07/20/24 19:16 99 07/20/24 17:01 97 07/20/24 16:52 07/20/24 16:43 99 07/20/24 16:36 96 07/20/24 16:34 100 07/20/24 16:27 98 07/20/24 16:21 100 Intake and Output 07/20/24 07/21/24 07/21/24 22:59 06:59 14:59 Intake Total 641.15 Output Total 1350 Balance 641.15 -1350 Intake: IV 100 Intake, IV Titration 1.15 Amount Nitroglycerin-D5w Pmx 50 1.15 mg In Dextrose/Water 1 250ml.bag @ 20 MCG/MIN 6 mls/hr IV .Q24H ONE Rx#: [id number] Oral 540 Output: Urine 1350 Other: Voiding Method Toilet Toilet Weight 72.575 kg 72.8 kg Results CBC & Chem 7: 07/21/24 07:01 07/21/24 07:01 Labs: Abnormal Lab Results - Last 24 Hours (Table) 07/20/24 07/20/24 07/20/24 Range/Units 16:40 16:40 16:40 RBC (3.80-5.40) m/uL Hgb (11.4-16.0) gm/dL Hct (34.0-46.0) % Neutrophils # 8.0 H (1.3-7.7) k/uL PT 9.9 L (10.0-12.5) sec APTT 20.4 L (22.0-30.0) sec Sodium 134 L (137-145) mmol/L BUN 20 H (7-17) mg/dL Glucose 253 H (74-99) mg/dL POC Glucose (mg/dL) (70-110) mg/dL Calcium 10.3 H (8.4-10.2) mg/dL AST 42 H (14-36) U/L Troponin I (0.000-0.034) ng/mL TSH (0.465-4.680) mIU/L 07/20/24 07/20/24 07/20/24 Range/Units 16:40 20:53 21:19 RBC (3.80-5.40) m/uL Hgb (11.4-16.0) gm/dL Hct (34.0-46.0) % Neutrophils # (1.3-7.7) k/uL PT (10.0-12.5) sec APTT (22.0-30.0) sec Sodium (137-145) mmol/L BUN (7-17) mg/dL Glucose (74-99) mg/dL POC Glucose (mg/dL) 133 H (70-110) mg/dL Calcium (8.4-10.2) mg/dL AST (14-36) U/L Troponin I 0.830 H* 5.440 H* (0.000-0.034) ng/mL TSH (0.465-4.680) mIU/L 07/20/24 07/20/24 07/21/24 Range/Units 21:19 23:48 05:51 RBC (3.80-5.40) m/uL Hgb (11.4-16.0) gm/dL Hct (34.0-46.0) % Neutrophils # (1.3-7.7) k/uL PT (10.0-12.5) sec APTT (22.0-30.0) sec Sodium (137-145) mmol/L BUN (7-17) mg/dL Glucose (74-99) mg/dL POC Glucose (mg/dL) 159 H (70-110) mg/dL Calcium (8.4-10.2) mg/dL AST (14-36) U/L Troponin I 5.650 H* (0.000-0.034) ng/mL TSH <0.015 L (0.465-4.680) mIU/L 07/21/24 Range/Units 07:01 RBC 3.65 L (3.80-5.40) m/uL Hgb 10.9 L (11.4-16.0) gm/dL Hct 33.3 L (34.0-46.0) % Neutrophils # (1.3-7.7) k/uL PT (10.0-12.5) sec APTT (22.0-30.0) sec Sodium (137-145) mmol/L BUN (7-17) mg/dL Glucose (74-99) mg/dL POC Glucose (mg/dL) (70-110) mg/dL Calcium (8.4-10.2) mg/dL AST (14-36) U/L Troponin I (0.000-0.034) ng/mL TSH (0.465-4.680) mIU/L Thrombosis Risk Factor Assmnt - Choose All That Apply Each Factor Represents 1 point: Acute [facility] Other Risk Factors: Yes Each Risk Factor Represents 3 Points: Age 75 years or older Other congenital or acquired thrombophilia - If yes, enter type in comment: No Thrombosis Risk Factor Assessment Total Risk Factor Score: 4 Thrombosis Risk Factor Assessment Level: Moderate Risk
[2024-07-21 16:15] VITALS: BP 135/74; PULSE 92; RESP 18; TEMP 98.8
--- NOTE | 2024-07-21 16:18 | P.DS ---
Providers Date of admission: 07/20/24 17:41 Attending physician: Steve Wilson Consults: 07/20/24 17:39 Consult Physician Stat Consulting Provider: Homero Tyson Reason/Comments: stemi Do you want consulting provider notified?: Already Contacted Primary care physician: Josemanuel Lechuga [facility] Course: Hospital Course: Patient is an 83-year-old female who presented for left arm pain and marybel phoresis. She was found to be hypertensive and have ST segment elevation in lead I and aVL on EKG. Cardiology was consulted and she was subsequently brought to [facility] where she underwent coronary angiogram and left heart catheterization. She was found to have mild to moderate nonobstructive coronary artery disease with TIMI2 flow in the diagonal branch of the LAD and elevated left-sided filling pressure. No intervention was done at the time. She is to continue aspirin 81 mg and Plavix for the next 12 months without interruption. She also is discharged on Lipitor 80 mg daily, Coreg 12.5 mg twice daily, valsartan 160 mg twice daily. Also being discharged on sublingual nitroglycerin - educated provided on proper use. She has remained symptom free since administration of nitroglycerin. Patient is stable for discharge. Cardiology cleared her for discharge. Patient to follow-up with PCP within 1 to 2 days. Patient should follow-up with cardiology within 1-2 weeks. Final Diagnosis: #. Acute STEMI Physical examination: Vital signs reviewed General: No acute distress Derm: No unusual rashes/lesions, warm Head: Atraumatic normocephalic, symmetric Eyes: EOMI, no lid lag, anicteric sclera, pupils equal round reactive to light ENT: Nose and ears atraumatic Neck: No cervical lymphadenopathy, trachea midline, supple Mouth: No lip lesion, mucus membranes moist Cardiovascular: S1S2 present, regular rate and rhythm, no murmurs, rubs, gallops Lungs: CTA bilateral, no rhonchi, no rales, no accessory muscle use Abdominal: Soft, nontender to palpation, no guarding Ext: Muscle strength 5 out of 5 in all 4 extremities grossly, no gross muscle atrophy, no contractures, dorsalis pedis pulses bilaterally, no edema Neuro: CN II-XI grossly intact, no gross focal neuro deficits Psych: Alert, oriented, appropriate affect and mood Attestation: I have personally seen and examined the patient with Resident, reviewed the documentation and participated and agree with the assessment and plan as written. Patient Condition at Discharge: Good Plan - Discharge Summary Discharge Rx Participant: Yes New Discharge Prescriptions: New Nitroglycerin Sl Tabs [Nitrostat] 0.4 mg SUBLINGUAL Q5M PRN #25 tab PRN Reason: Chest Pain carvediloL [Coreg*] 12.5 mg PO BID-W/MEALS 30 Days #60 tab Clopidogrel [Plavix] 75 mg PO DAILY #30 tab Aspirin [Adult Low Dose Aspirin EC] 81 mg PO DAILY 30 Days #30 tab Valsartan [Diovan] 160 mg PO BID 30 Days #60 tab Atorvastatin [Lipitor] 80 mg PO DAILY@1730 #30 tab Continue Diabetic Multivitamin 1 tab PO DAILY Carboxymethylcellulose Sodium [Refresh Tears] 1 drop BOTH EYES QID PRN PRN Reason: Dry Eye(S) methIMAzole [Tapazole] 22.5 mg PO DAILY metFORMIN HCL [Glucophage] 500 mg PO BID Timolol 0.5% Ophth Soln [Timoptic 0.5% Ophth Soln] 1 drop BOTH EYES HS Cholecalciferol [Vitamin D3 (125 Mcg = 5000 Iu)] 125 mcg PO DAILY Discontinued Lisinopril-Hctz 20-12.5 mg [Zestoretic 20-12.5] 1 tab PO BID Meloxicam [Mobic] 15 mg PO DAILY PRN PRN Reason: Pain Lovastatin [Mevacor] 40 mg PO DAILY Discharge Medication List Carboxymethylcellulose Sodium [Refresh Tears] 1 drop BOTH EYES QID PRN 07/20/24 [History] Cholecalciferol [Vitamin D3 (125 Mcg = 5000 Iu)] 125 mcg PO DAILY 07/20/24 [History] Diabetic Multivitamin 1 tab PO DAILY 07/20/24 [History] Timolol 0.5% Ophth Soln [Timoptic 0.5% Ophth Soln] 1 drop BOTH EYES HS 07/20/24 [History] metFORMIN HCL [Glucophage] 500 mg PO BID 07/20/24 [History] methIMAzole [Tapazole] 22.5 mg PO DAILY 07/20/24 [History] Aspirin [Adult Low Dose Aspirin EC] 81 mg PO DAILY 30 Days #30 tab 07/21/24 [Rx] Atorvastatin [Lipitor] 80 mg PO DAILY@1730 #30 tab 07/21/24 [Rx] Clopidogrel [Plavix] 75 mg PO DAILY #30 tab 07/21/24 [Rx] Nitroglycerin Sl Tabs [Nitrostat] 0.4 mg SUBLINGUAL Q5M PRN #25 tab 07/21/24 [Rx] Valsartan [Diovan] 160 mg PO BID 30 Days #60 tab 07/21/24 [Rx] carvediloL [Coreg*] 12.5 mg PO BID-W/MEALS 30 Days #60 tab 07/21/24 [Rx] Follow up Appointment(s)/Referral(s): Josemanuel Lechuga MD [Primary Care Provider] - 1-2 days (please call and make follow-up) Homero Tyson MD [STAFF PHYSICIAN] - 1 Week (please call and make follow-up) Patient Instructions/Handouts: *Surgery [facility] - After Heart Catheterization - [facility] Instructions, Heart Attack (DC), Heart Healthy Diet (DC), After Radial Heart Catheterization (GEN) Discharge Disposition: HOME SELF-CARE
[2024-07-21] MEDS: ATORVASTATIN 80 MG TAB PO SCH (16:26)
[2024-07-21 16:52] LABS: Glucose,Whole Blood 184 mg/dL (70-110)
== END 2024-07-21 17:59 | disposition home or self-care (01) | DRG 282 ==
LOC: EC 16:20 → 2SICU 17:41 → 3SCARD 20:01
PROVIDERS: ADMIT Internal Medicine; ATTEND Internal Medicine
PROC: B2111ZZ Fluoroscopy of Multiple Coronary Arteries using Low Osmolar Contrast (ICD-10-PCS; principal; 2024-07-20 16:30)
PROC: 4A023N7 Measurement of Cardiac Sampling and Pressure, Left Heart, Percutaneous Approach (ICD-10-PCS; principal; 2024-07-20 16:30)
DX: I21.02 ST elevation (STEMI) myocardial infarction involving left anterior descending coronary artery (principal); E11.9 Type 2 diabetes mellitus without complications; E78.00 Pure hypercholesterolemia, unspecified; I10 Essential (primary) hypertension; I16.0 Hypertensive urgency; I25.10 Atherosclerotic heart disease of native coronary artery without angina pectoris; E05.90 Thyrotoxicosis, unspecified without thyrotoxic crisis or storm; Z79.84 Long term (current) use of oral hypoglycemic drugs; Z79.02 Long term (current) use of antithrombotics/antiplatelets; Z79.82 Long term (current) use of aspirin; Z79.899 Other long term (current) drug therapy; Z79.1 Long term (current) use of non-steroidal anti-inflammatories (NSAID); Z79.890 Hormone replacement therapy; Z88.8 Allergy status to other drugs, medicaments and biological substances
CPT/HCPCS: 36415; 71045; 80048; 80053; 84439; 84443; 84484; 85025; 85610; 85730; 93005; 93306; 93458; 94760; 96365; 96366; 96375; 99291

== ENCOUNTER → 2024-08-17 | Outpatient (CLI) | payer MEDICARE ==
[2024-08-17 15:36] LABS: Basophils # (A) 0.03 X 10*3/uL (0.00-0.10); Basophils % (A) 0.4 %; Eosinophils # (A) 0.17 X 10*3/uL (0.04-0.35); Eosinophils % (A) 2.1 %; HCT 37.1 % (37.2-46.3); HGB 11.6 g/dL (12.0-15.0); Lymphocytes % (A) 15.8 %; MCH 29.1 pg (27.0-32.0); MCHC 31.3 g/dL (32.0-37.0); Mean Platelet Volume 9.9 FL (9.5-12.2); Monocytes # (A) 0.67 X 10*3/uL (0.20-1.00); Monocytes % (A) 8.1 %; NRBC Per 100 WBC 0 X 10*3/uL (0.00-0.01); Neutrophils # (A) 6.03 X 10*3/uL (1.80-7.70); Neutrophils % (A) 73.2 %; Platelet Count 239 X 10*3/uL (140-440); RBC 3.99 X 10*6/uL (4.10-5.20); RDW 13.2 % (11.5-14.5); WBC 8.23 X 10*3/uL (4.50-10.00)
[2024-08-17 18:55] LABS: ALT 11 U/L (8-44); AST 17 U/L (13-35); Albumin 3.8 g/dL (3.8-4.9); Albumin/Globulin Ratio 1.31 Ratio (1.60-3.17); Alkaline Phosphatase 72 U/L (41-126); BUN/Creat Ratio 18.33 Ratio (12.00-20.00); Blood Urea Nitrogen 16.5 mg/dL (9.0-27.0); Calcium 9.9 mg/dL (8.7-10.3); Carbon Dioxide 20.2 mmol/L (21.6-31.8); Chloride 107 mmol/L (96-109); Chol/HDL Ratio 2.44 Ratio; Globulin 2.9 g/dL (1.6-3.3); Glucose 145 mg/dL (70-110); LDL Cholesterol,Calculated 73.5 mg/dL (0.0-131.0); Potassium 4.8 mmol/L (3.5-5.5); Sodium 142 mmol/L (135-145); Total Bilirubin 0.4 mg/dL (0.3-1.2); Total Protein 6.7 g/dL (6.2-8.2); VLDL Calculation 11.38 mg/dL (5.00-40.00)
== END | disposition home or self-care (01) ==
LOC: LABWHC1 09:02
PROVIDERS: ATTEND Family Medicine
DX: E78.2 Mixed hyperlipidemia (principal); E11.65 Type 2 diabetes mellitus with hyperglycemia
CPT/HCPCS: 36415; 80053; 80061; 83036; 85025

== ENCOUNTER → 2024-12-12 | Outpatient (CLI) | payer MEDICARE ==
--- NOTE | 2024-12-12 12:10 | MM ---
Reason for Exam: Screening (asymptomatic). Last mammogram was performed 1 year(s) and 2 month(s) ago. Patient History: Menarche at age 13. First Full-Term at age 20. Postmenopausal. Patient has history of breast feeding. Prior Study Comparison: 09/01/2021 Bilateral Screening Mammogram, [facility]. 09/16/2022 Bilateral MG 3D screening mammo w/cad, [facility]. 10/13/2023 Bilateral MG 3D screening mammo w/cad, [facility]. Tissue Density: The breasts are heterogeneously dense, which may obscure small masses. Findings: Analyzed By CAD. Right breast: There is no suspicious group of microcalcifications or new suspicious mass. Left breast: There is no suspicious group of microcalcifications or new suspicious mass. Overall Assessment: Negative, BI-RAD 1 Management: Screening Mammogram of both breasts in [address] [facility] will attempt to contact patient to return for supplemental views and ultrasound if indicated. Patient should continue monthly self-breast exams. A clinical breast exam by your physician is recommended on an annual basis. This exam should not preclude additional follow-up of suspicious palpable abnormalities. Note on Skylar scores and lifetime risk: 1. A Skylar score greater than 3% is considered moderate risk. If this is the case, consider specialist referral to assess eligibility for a risk reducing agent. 2. If overall lifetime risk for the development of breast cancer is 20% or higher, the patient may qualify for future screening with alternating mammogram and breast MRI. [facility], , 12/12/2024 12:06 PM. Electronically signed and approved by: Case Chavez DO
== END | disposition home or self-care (01) ==
LOC: RADMAMWWP 10:12
PROVIDERS: ATTEND Family Medicine
DX: Z12.31 Encounter for screening mammogram for malignant neoplasm of breast (principal); R92.333 Mammographic heterogeneous density, bilateral breasts; Z78.0 Asymptomatic menopausal state
CPT/HCPCS: 77063; 77067

== ENCOUNTER → 2024-12-13 | Outpatient (CLI) | payer MEDICARE ==
[2024-12-13 14:44] LABS: Basophils # (A) 0.04 X 10*3/uL (0.00-0.10); Basophils % (A) 0.7 %; Eosinophils # (A) 0.13 X 10*3/uL (0.04-0.35); Eosinophils % (A) 2.3 %; HGB 12.9 g/dL (12.0-15.0); Lymphocytes # (A) 1.24 X 10*3/uL (0.90-5.00); Lymphocytes % (A) 22.1 %; MCH 29.1 pg (27.0-32.0); MCHC 32.3 g/dL (32.0-37.0); MCV 90.3 FL (80.0-97.0); Mean Platelet Volume 10.8 FL (9.5-12.2); Monocytes # (A) 0.65 X 10*3/uL (0.20-1.00); Monocytes % (A) 11.6 %; NRBC Per 100 WBC 0 X 10*3/uL (0.00-0.01); Neutrophils # (A) 3.53 X 10*3/uL (1.80-7.70); Neutrophils % (A) 63.1 %; Platelet Count 259 X 10*3/uL (140-440); RBC 4.43 X 10*6/uL (4.10-5.20); RDW 14.7 % (11.5-14.5)
[2024-12-13 15:13] LABS: ALT 448 U/L (8-44); AST 339 U/L (13-35); Albumin 3.9 g/dL (3.8-4.9); Albumin/Globulin Ratio 1.18 Ratio (1.60-3.17); Alkaline Phosphatase 506 U/L (41-126); Blood Urea Nitrogen 16.8 mg/dL (9.0-27.0); Calcium 10.7 mg/dL (8.7-10.3); Carbon Dioxide 25.7 mmol/L (21.6-31.8); Chloride 104 mmol/L (96-109); Chol/HDL Ratio 2.07 Ratio; Globulin 3.3 g/dL (1.6-3.3); Glucose 160 mg/dL (70-110); LDL Cholesterol,Calculated 69.6 mg/dL (0.0-131.0); Potassium 4.5 mmol/L (3.5-5.5); Sodium 140 mmol/L (135-145); T4, Free (Free Thyroxine) 1.11 ng/dL (0.80-1.80); Total Bilirubin 0.6 mg/dL (0.3-1.2); Total Protein 7.2 g/dL (6.2-8.2)
== END | disposition home or self-care (01) ==
LOC: LABWHC1 10:30
PROVIDERS: ATTEND Family Medicine
DX: E05.90 Thyrotoxicosis, unspecified without thyrotoxic crisis or storm (principal); E11.40 Type 2 diabetes mellitus with diabetic neuropathy, unspecified
CPT/HCPCS: 36415; 80053; 80061; 83036; 84439; 84443; 84481; 85025

== ENCOUNTER → 2025-01-15 | Outpatient (CLI) | payer MEDICARE ==
--- NOTE | 2025-01-15 11:12 | US ---
EXAMINATION TYPE: US abdomen complete DATE OF EXAM: 01/15/2025 COMPARISON: NONE CLINICAL INDICATION: Female, 84 years old with history of R94.5 ABNORMAL RESULTS OF LIVER FUNCTION ST UDIES; Liver function test outside reference range TECHNIQUE: Grayscale and color Doppler imaging of the abdomen was performed. FINDINGS: EXAM MEASUREMENTS: Liver Length: 16.4 cm Gallbladder Wall: 0.30 cm CBD: 0.75 cm, color Doppler imaging was utilized to isolate the common bile duct for measurement. Spleen: Obscured Right Kidney: 9.7 x 5.6 x 4.0 cm Left Kidney: 10.4 x 4.7 x 6.0 cm ELEPHANT KEEPER NOTES: Exam is limited due to gas. Pancreas: Not well seen, limited due to gas. Liver: Appears very coarse. ?Some intrahepatic ductal dilatation Gallbladder: *Hyperechoic material seen within: 1.6 x 0.8 x 0.3 cm. Phrygian's cap seen. Evidence for sonographic Sam's sign: No CBD: Dilated Spleen: Obscured Right Kidney: wnl, No hydronephrosis, calculi or masses seen Left Kidney: wnl, No hydronephrosis, calculi or masses seen Upper IVC: wnl Abd Aorta: Plaque seen within. Dilation seen distal aorta but measures only 2.3 cm AP. Iliacs were obscured by gas. IMPRESSION: 1. No evidence for acute process. 2. Biliary debris/cholelithiasis. 3. Hepatocellular disease correlate with serum markers. [facility], , 01/15/2025 11:09 AM
== END | disposition home or self-care (01) ==
LOC: RADUSWWP 10:21
PROVIDERS: ATTEND Family Medicine
DX: R94.5 Abnormal results of liver function studies (principal); K76.89 Other specified diseases of liver
CPT/HCPCS: 76700